=== PATIENT | female | born 1950 | race Caucasian/White ===

== ENCOUNTER → 2017-06-27 | Outpatient (CLI) | payer MEDICARE ==
[~2017-06-27] MED LIST: ACET500; AMIT25; ASPI81EC; CEFD300 PO; CIPR500 PO; CODGUAEL PO; CYCL10 PO; DULO60; FURO20; HUMALOG KW200 UNIT/1; HYDACE5; HYDACE5 PO; INS70/30PN; INSDET100; INSULANI; JANUMET; LOSA50 PO; METO10 PO; METO5A; Norco 5-325 Ta1 EACH PO; PANT40 PO; PHENA200 PO; POTA10T; PROM25 PO; RXHYDACE PO; SIMV20; URISTAT; Zithromax250 MG PO; Zofran Odt4 MG PO; Zofran4 MG PO; [UNRECOGNIZED DRUG - REMARK]
[2017-06-27 14:42] LABS: Alanine Aminotransfer (ALT/SGP 13 U/L (12-78); Albumin, Blood 3.7 g/dL (3.4-5.0); Alk Phos 86 U/L (50-136); Anion Gap 8 mmol/L (6-16); Aspartate Aminotrans (AST/SGOT 10 U/L (12-37); Bilirubin, Total 0.7 mg/dL (0.1-1.0); Blood Urea Nitrogen 19 mg/dL (8-24); CO2, Blood 28 mmol/L (21-32); Calcium, Blood 9.4 mg/dL (8.5-10.1); Chloride, Blood 104 mmol/L (98-108); Globulin, Blood 3.7 g/dL (2.2-4.0); Glomerular Filtration Rate >60 (60-); Glucose, Blood 228 mg/dL (70-99); Potassium, Blood 4.1 mmol/L (3.5-5.5); Sodium, Blood 140 mmol/L (136-145); Total Protein, Blood 7.4 g/dL (6.4-8.2)
== END | disposition home or self-care (01) ==
LOC: LAB SHORT 13:35 → LAB 13:35
PROVIDERS: Internal Medicine
DX: E11.9 Type 2 diabetes mellitus without complications (principal); I10 Essential (primary) hypertension
CPT/HCPCS: 80053; 83036

== ENCOUNTER 2018-07-23 16:19 | Inpatient (IN) | payer MEDICARE ==
[~2018-07-23] VITALS: Ht 157.5 cm; Wt 55.7 kg
[~2018-07-23 16:19] MED LIST changes: -HUMALOG KW200 UNIT/1; +Humalog100 UNIT/3 SC
[2018-07-23 16:45] LABS: Calcium, Ionized (POC) 1.08 mmol/L (1.10-1.46); Chloride (POC) 99 mmol/L (98-108); Creatinine (POC) 0.5 mg/dL (0.6-1.0); Glucose (ISTAT POC) 406 mg/dL (70-99); Hemoglobin (POC) 12.9 g/dL (12.0-16.0); Potassium (POC) 3.7 mmol/L (3.5-5.5); Sodium (POC) 136 mmol/L (135-148); Total CO2 (POC) 20 mmol/L (21-32)
[2018-07-23 16:53] LABS: BASOPHILS ABSOLUTE AUTO 0.03 K/mm3 (0.00-0.23); BASOPHILS PERCENT AUTO 0 % (0-2); EOSINOPHILS ABSOLUTE AUTO 0.01 K/mm3 (0.00-0.68); EOSINOPHILS PERCENT AUTO 0 % (0-6); Hematocrit 36.3 % (33.0-51.0); Hemoglobin 12.6 g/dL (11.5-16.0); IMMATURE GRAN ABSOLUTE AUTO 0.06 K/mm3 (0.00-0.10); IMMATURE GRAN PERCENT AUTO 1 % (0-1); LYMPHOCYTES PERCENT AUTO 13 % (21-46); MONOCYTES ABSOLUTE AUTO 0.58 K/mm3 (0.16-1.47); MONOCYTES PERCENT AUTO 4 % (4-13); Mean Corpuscular HGB 31.7 pg (26.0-34.0); Mean Corpuscular HGB Conc 34.7 g/dL (31.5-36.5); Mean Corpuscular Volume 91 fL (80-100); Mean Platelet Volume 10.3 fL (9.1-12.4); NEUTROPHILS ABSOLUTE AUTO 10.89 K/mm3 (1.96-9.15); NEUTROPHILS PERCENT AUTO 82 % (41-73); Platelet Count 405 K/mm3 (150-400); RDW Coefficient Variation 11.8 % (11.7-14.2); RDW Standard Deviation 39.4 fL (35.1-46.3); Red Blood Cell Count 3.98 M/mm3 (3.80-5.20); White Blood Cell Count 13.27 K/mm3 (4.00-11.30)
[2018-07-23 17:19] LABS: Source, Urine Clean Catch
[2018-07-23 17:19] LABS: Alanine Aminotransfer (ALT/SGP 14 U/L (12-78); Albumin, Blood 3.6 g/dL (3.4-5.0); Albumin/Globulin Ratio 0.8 (0.8-1.8); Alk Phos 155 U/L (50-136); Anion Gap 14 mmol/L (6-16); Aspartate Aminotrans (AST/SGOT 8 U/L (12-37); Bilirubin, Total 0.7 mg/dL (0.1-1.0); Blood Urea Nitrogen 17 mg/dL (8-24); CO2, Blood 21 mmol/L (21-32); Calcium, Blood 9.7 mg/dL (8.5-10.1); Chloride, Blood 99 mmol/L (98-108); Creatinine, Blood 0.53 mg/dL (0.40-1.00); Globulin, Blood 4.7 g/dL (2.2-4.0); Glomerular Filtration Rate >60 (60-); Glucose, Blood 411 mg/dL (70-99); Potassium, Blood 3.7 mmol/L (3.5-5.5); Sodium, Blood 134 mmol/L (136-145); Total Protein, Blood 8.3 g/dL (6.4-8.2)
[2018-07-23 17:25] LABS: Troponin I <0.015 ng/mL (0.000-0.040)
[2018-07-23 17:25] LABS: Bilirubin, Urine Neg (Neg); Blood, Urine 1+ (Neg); Glucose Qualitative, Urine 4+ (Neg); Ketones, Urine 4+ (Neg); Leukocyte Esterase, Urine 1+ (Neg); Nitrite, Urine Neg (Neg); Protein, Urine 1+ (Neg); Specific Gravity, Urine 1.005 (1.003-1.022); Urobilinogen, Urine NORM (Normal)
[2018-07-23 17:32] LABS: Appearance, Urine Clear (Clear); Color, Urine Yellow (P-Yellow)
[2018-07-23 17:33] LABS: White Blood Cells, Urine 25-50 /hpf (0-5)
[2018-07-23 17:34] LABS: Bacteria Many /hpf; Squamous Epithelial Cells Not Seen /hpf (Few)
[2018-07-23 17:34] LABS: Beta-hydroxybutyrate 27.6 mg/dL (0.2-2.8)
[2018-07-23 17:42] LABS: PCO2 Arterial 17.6 mmHg (35-45); PO2 Arterial 120 mmHg (80-100); pH Blood Arterial 7.61 (7.35-7.45)
[2018-07-23] MEDS ORDERED: CITA20 PO (18:35)
[2018-07-23] MEDS ORDERED: ATOR10 PO (18:35)
[2018-07-23] MEDS ORDERED: GLIP5 PO (18:38)
[2018-07-23] MEDS ORDERED: METF500C PO (21:01)
[2018-07-24 05:28] LABS: BASOPHILS ABSOLUTE AUTO 0.02 K/mm3 (0.00-0.23); BASOPHILS PERCENT AUTO 0 % (0-2); EOSINOPHILS PERCENT AUTO 0 % (0-6); Hematocrit 33.5 % (33.0-51.0); Hemoglobin 11.4 g/dL (11.5-16.0); IMMATURE GRAN ABSOLUTE AUTO 0.04 K/mm3 (0.00-0.10); IMMATURE GRAN PERCENT AUTO 0 % (0-1); LYMPHOCYTES ABSOLUTE AUTO 1.32 K/mm3 (0.84-5.20); LYMPHOCYTES PERCENT AUTO 10 % (21-46); MONOCYTES ABSOLUTE AUTO 0.34 K/mm3 (0.16-1.47); MONOCYTES PERCENT AUTO 3 % (4-13); Mean Corpuscular HGB 31.7 pg (26.0-34.0); Mean Corpuscular Volume 93 fL (80-100); Mean Platelet Volume 10.8 fL (9.1-12.4); NEUTROPHILS ABSOLUTE AUTO 11.27 K/mm3 (1.96-9.15); NEUTROPHILS PERCENT AUTO 87 % (41-73); Platelet Count 389 K/mm3 (150-400); RDW Coefficient Variation 11.9 % (11.7-14.2); RDW Standard Deviation 40.5 fL (35.1-46.3); White Blood Cell Count 12.99 K/mm3 (4.00-11.30)
[2018-07-24 05:57] LABS: Magnesium, Blood 1.5 mg/dL (1.6-2.4)
[2018-07-24 05:58] LABS: Alanine Aminotransfer (ALT/SGP 15 U/L (12-78); Albumin, Blood 3.3 g/dL (3.4-5.0); Albumin/Globulin Ratio 0.7 (0.8-1.8); Alk Phos 143 U/L (50-136); Anion Gap 15 mmol/L (6-16); Aspartate Aminotrans (AST/SGOT 10 U/L (12-37); Bilirubin, Total 0.5 mg/dL (0.1-1.0); Blood Urea Nitrogen 18 mg/dL (8-24); CO2, Blood 18 mmol/L (21-32); Calcium, Blood 8.8 mg/dL (8.5-10.1); Chloride, Blood 105 mmol/L (98-108); Creatinine, Blood 0.64 mg/dL (0.40-1.00); Globulin, Blood 4.5 g/dL (2.2-4.0); Glomerular Filtration Rate >60 (60-); Glucose, Blood 327 mg/dL (70-99); Potassium, Blood 3.6 mmol/L (3.5-5.5); Sodium, Blood 138 mmol/L (136-145); Total Protein, Blood 7.8 g/dL (6.4-8.2)
--- NOTE | 2018-07-24 07:24 | NUR ---
SHIFT SUMMARY PT ARRIVED TO ROOM APPROX 2029. C/O N/V ACTIVELY VOMITING. EMESIS BROWN. REGLAN PO DIDN'T HELP AND SHE KEPT BEING NAUSEOUS AND VOMITING. IV COMPAZINE HELPED HER FOR A LITTLE WHILE AND SHE WAS ABLE TO GET SOME REST. BUT CONSISTANTLY N/V T/O NIGHT. MEDICATED C COMPAZINE Q2HR MAX DOSE 40MG. SBA TO BA BUT IS INCONT AT BASELINE WELL. REPORT GIVEN TO DAY RN
--- NOTE | 2018-07-24 19:06 | NUR ---
PT CONTINUES TO WITH NAUSEA/VOMITING, ABLE TO KEEP ICE CHIPS AND SIPS OF WATER DOWN. C/O BURING PAIN TO THROAT TO STOMACH, CARAFATE AC/HS STARTED FOR THIS. NO ACUTE CHANGES NOTED. WILL CONTINUE TO MONITOR AND REPORT TO ONCOMING RN
[2018-07-25 04:55] LABS: BASOPHILS ABSOLUTE AUTO 0.04 K/mm3 (0.00-0.23); BASOPHILS PERCENT AUTO 0 % (0-2); EOSINOPHILS PERCENT AUTO 0 % (0-6); Hematocrit 35.7 % (33.0-51.0); Hemoglobin 12.1 g/dL (11.5-16.0); IMMATURE GRAN ABSOLUTE AUTO 0.11 K/mm3 (0.00-0.10); IMMATURE GRAN PERCENT AUTO 1 % (0-1); LYMPHOCYTES ABSOLUTE AUTO 2.06 K/mm3 (0.84-5.20); LYMPHOCYTES PERCENT AUTO 11 % (21-46); MONOCYTES ABSOLUTE AUTO 1.39 K/mm3 (0.16-1.47); MONOCYTES PERCENT AUTO 7 % (4-13); Mean Corpuscular HGB 32.4 pg (26.0-34.0); Mean Corpuscular HGB Conc 33.9 g/dL (31.5-36.5); Mean Platelet Volume 10.8 fL (9.1-12.4); NEUTROPHILS ABSOLUTE AUTO 15.65 K/mm3 (1.96-9.15); NEUTROPHILS PERCENT AUTO 81 % (41-73); Platelet Count 406 K/mm3 (150-400); RDW Coefficient Variation 12.2 % (11.7-14.2); RDW Standard Deviation 42.1 fL (35.1-46.3); Red Blood Cell Count 3.74 M/mm3 (3.80-5.20); White Blood Cell Count 19.25 K/mm3 (4.00-11.30)
[2018-07-25 05:01] LABS: Mean Corpuscular Volume 96 fL (80-100)
[2018-07-25 05:14] LABS: Alanine Aminotransfer (ALT/SGP 12 U/L (12-78); Albumin, Blood 3.2 g/dL (3.4-5.0); Albumin/Globulin Ratio 0.7 (0.8-1.8); Alk Phos 129 U/L (50-136); Anion Gap 14 mmol/L (6-16); Aspartate Aminotrans (AST/SGOT 13 U/L (12-37); Bilirubin, Total 0.4 mg/dL (0.1-1.0); Blood Urea Nitrogen 14 mg/dL (8-24); Bun/Creatinine Ratio 26.3 (12.0-20.0); CO2, Blood 18 mmol/L (21-32); Calcium, Blood 8.8 mg/dL (8.5-10.1); Chloride, Blood 107 mmol/L (98-108); Creatinine, Blood 0.53 mg/dL (0.40-1.00); Globulin, Blood 4.3 g/dL (2.2-4.0); Glomerular Filtration Rate >60 (60-); Glucose, Blood 204 mg/dL (70-99); Potassium, Blood 3.1 mmol/L (3.5-5.5); Sodium, Blood 139 mmol/L (136-145); Total Protein, Blood 7.5 g/dL (6.4-8.2)
--- NOTE | 2018-07-25 05:40 | NUR ---
*SHIFT SUMMARY* ALERT AND ORIENTED. PATIENT WAS VERY NAUSEATED THROUGHOUT BEGINING OF SHIFT. MEDICATED FOR NAUSEA ORDERED. ADVISED PATIENT TO TAKE A BREAK FROM DRINKING FLUIDS SINCE SHE WAS CONTINUALLY VOMITING. PT STATES SHE DOESN'T HAVE PAIN JUST NAUSEA. CALLED HOSPITALIST AND RECIEVED A NEW ORDER FOR ZOFRAN IV AND OT ORDER FOR ATIVAN. PT WAS ABLE TO GET SOME REST AFTER THE ATIVAN WAS ADMINISTERED, AND STATES THE NAUSEA HAS DECREASED. VITAL SIGNS ARE STABLE. CALL LIGHT IN REACH, BED LOWERED AND LOCKED.
--- NOTE | 2018-07-25 17:37 | NUR ---
SHIFT SUMMARY PT UP TO BATHROOM WITH 1 PERSON ASSIST. INCONTINENT GENERALLY BY THE TIME SHE GETS THERE AND REPORTS THIS IS BASELINE. HAS DENIED NAUSEA THROUGH DAY BUT REPORTS DISCOMFORT TO LUQ AND TENERNESS. HAS ONLY SIPPED AT CLEAR LIQUIDS AND REPORTS IT DOESN'T SET VERY WELL WITH JUST BEING LIQUID. CALLED MD AND RECEIVED A FULL LIQUID DIET. HAS HAD APPLESAUCE AND IS EATING IT SLOWLY AND STATES SHE DOESN'T FEEL ANY WORSE EATING IT.
--- NOTE | 2018-07-25 20:34 | NUR ---
SITE IS ON RIGHT FOREARM NOT LEFT.
--- NOTE | 2018-07-25 20:36 | NUR ---
THERE WAS NO IV IN THE AC ON 07/24/18. UNSURE WHO REMOVED IV.
[2018-07-26 04:55] LABS: BASOPHILS ABSOLUTE AUTO 0.03 K/mm3 (0.00-0.23); BASOPHILS PERCENT AUTO 0 % (0-2); EOSINOPHILS ABSOLUTE AUTO 0.01 K/mm3 (0.00-0.68); EOSINOPHILS PERCENT AUTO 0 % (0-6); Hematocrit 36.1 % (33.0-51.0); Hemoglobin 12.6 g/dL (11.5-16.0); IMMATURE GRAN ABSOLUTE AUTO 0.14 K/mm3 (0.00-0.10); IMMATURE GRAN PERCENT AUTO 1 % (0-1); LYMPHOCYTES ABSOLUTE AUTO 2.66 K/mm3 (0.84-5.20); LYMPHOCYTES PERCENT AUTO 16 % (21-46); MONOCYTES ABSOLUTE AUTO 1.33 K/mm3 (0.16-1.47); MONOCYTES PERCENT AUTO 8 % (4-13); Mean Corpuscular HGB 31.9 pg (26.0-34.0); Mean Corpuscular HGB Conc 34.9 g/dL (31.5-36.5); Mean Platelet Volume 10.7 fL (9.1-12.4); NEUTROPHILS ABSOLUTE AUTO 13.03 K/mm3 (1.96-9.15); NEUTROPHILS PERCENT AUTO 76 % (41-73); Platelet Count 438 K/mm3 (150-400); RDW Coefficient Variation 12.1 % (11.7-14.2); RDW Standard Deviation 40.6 fL (35.1-46.3); Red Blood Cell Count 3.95 M/mm3 (3.80-5.20)
[2018-07-26 05:06] LABS: Mean Corpuscular Volume 91 fL (80-100)
[2018-07-26 05:40] LABS: Alanine Aminotransfer (ALT/SGP 11 U/L (12-78); Albumin, Blood 3.2 g/dL (3.4-5.0); Albumin/Globulin Ratio 0.8 (0.8-1.8); Alk Phos 132 U/L (50-136); Anion Gap 11 mmol/L (6-16); Aspartate Aminotrans (AST/SGOT 11 U/L (12-37); Bilirubin, Total 0.6 mg/dL (0.1-1.0); Blood Urea Nitrogen 7 mg/dL (8-24); Bun/Creatinine Ratio 14.5 (12.0-20.0); CO2, Blood 24 mmol/L (21-32); Calcium, Blood 8.2 mg/dL (8.5-10.1); Chloride, Blood 102 mmol/L (98-108); Creatinine, Blood 0.48 mg/dL (0.40-1.00); Globulin, Blood 4.1 g/dL (2.2-4.0); Glomerular Filtration Rate >60 (60-); Glucose, Blood 260 mg/dL (70-99); Sodium, Blood 137 mmol/L (136-145); Total Protein, Blood 7.3 g/dL (6.4-8.2)
[2018-07-26 05:42] LABS: Potassium, Blood 2.4 mmol/L (3.5-5.5)
--- NOTE | 2018-07-26 07:28 | NUR ---
*SHIFT SUMMARY* PATIENT IS ALERT AND ORIENTED. PATIENT REPORTS HAVING A DECREASE IN NAUSEA TODAY AND WAS ABLE TO TOLERATE FULL LIQUIDS. PATIENT SLEPT WELL THROUGHOUT THE NIGHT AND USED CALL LIGHT APPROPRIATELY TO USE BATHROOM. EARLY THIS AM PT REPORTED FEELING INDIGESTION. THIS WAS REPORTED TO THE DAYSHIFT RN. CRITICAL VALUE REPORTED THAT POTASSIUM LEVEL WAS LOW AT 2.4. APARTMENT LEASING AGENT AND HOSPITALIST NOTIFIED. NEW ORDERS RECIEVED AND ADMINISTERED SEE EMAR. CALL LIGHT IN REACH, BED LOWERED AND LOCKED.
[2018-07-26] MEDS ORDERED: METO10 PO (10:31)
[2018-07-26] MEDS ORDERED: TUMS500 MG PO (10:32)
[2018-07-26] MEDS ORDERED: Carafate1 GM/10 ML PO (10:33)
--- NOTE | 2018-07-26 12:23 | NUR ---
DISCHARGE INSTRUCTIONS COMPLETED AND DISCUSSED WITH PT EXPRESSING UNDERSTANDING. SCRIPTS FAXED TO [facility]. TO [facility] VIA W/C WITH FAMILY.
== END 2018-07-26 12:08 | disposition home or self-care (01) | DRG 74 ==
LOC: ER 16:19 → MEDS 18:19 → ENPENDDIS 07-26 09:59 → MEDS 07-26 12:08
PROVIDERS: Emergency Medicine; ADMIT Internal Medicine
DX: E11.43 Type 2 diabetes mellitus with diabetic autonomic (poly)neuropathy (principal); N39.0 Urinary tract infection, site not specified; K31.84 Gastroparesis; K21.9 Gastro-esophageal reflux disease without esophagitis; E87.6 Hypokalemia; K20.9 Esophagitis, unspecified; B96.20 Unspecified Escherichia coli [E. coli] as the cause of diseases classified elsewhere; I10 Essential (primary) hypertension; G47.33 Obstructive sleep apnea (adult) (pediatric); E78.5 Hyperlipidemia, unspecified; Z86.73 Personal history of transient ischemic attack (TIA), and cerebral infarction without residual deficits
CPT/HCPCS: 36415; 36600; 71045; 80047; 80053; 81001; 82010; 82803; 82947; 83036; 83605; 83735; 84484; 85014; 85025; 87077; 87086; 87186; 93005; 93010; 96361; 96365; 96375; 96376; 99285-25; J0696; J0780; J1650; J1815; J2060; J2405; J3475; J3480; J7030; P9612

== ENCOUNTER → 2018-08-12 | Outpatient (CLI) | payer MEDICARE ==
[~2018-08-12] MED LIST changes: +ATOR10 PO; +CITA20 PO; +Carafate1 GM/10 ML PO; +GLIP5 PO; +METF500C PO; +TUMS500 MG PO
== END | disposition home or self-care (01) ==
LOC: LAB 18:11 → LAB SHORT 18:11
DX: N39.0 Urinary tract infection, site not specified (principal)
CPT/HCPCS: 87077; 87086; 87186

== ENCOUNTER → 2018-09-10 | Outpatient (CLI) | payer MEDICARE | LOC: LAB 13:54 → LAB SHORT 13:54 | DX: R35.0 Frequency of micturition (principal) | CPT/HCPCS: 87077; 87086; 87186 ==

== ENCOUNTER 2019-01-03 18:23 | Inpatient (IN) | payer MEDICARE ==
[~2019-01-03] VITALS: Ht 160 cm; Wt 56.7 kg
[~2019-01-03 18:23] MED LIST changes: -ATOR10 PO; -Humalog100 UNIT/3 SC; -METF500C PO
[2019-01-03 19:14] LABS: Base Excess Venous -8.5 mmol/L; Bicarbonate Venous 20.6 mmol/L (24.0-30.0); PCO2 Venous 13.6 mmHg (38-42); PO2 Venous 143 mmHg (38-42)
[2019-01-03 19:16] LABS: BASOPHILS ABSOLUTE AUTO 0.06 K/mm3 (0.00-0.23); BASOPHILS PERCENT AUTO 0 % (0-2); EOSINOPHILS ABSOLUTE AUTO 0.05 K/mm3 (0.00-0.68); EOSINOPHILS PERCENT AUTO 0 % (0-6); Hematocrit 42.6 % (33.0-51.0); IMMATURE GRAN ABSOLUTE AUTO 0.12 K/mm3 (0.00-0.10); IMMATURE GRAN PERCENT AUTO 1 % (0-1); LYMPHOCYTES ABSOLUTE AUTO 6.07 K/mm3 (0.84-5.20); LYMPHOCYTES PERCENT AUTO 40 % (21-46); MONOCYTES ABSOLUTE AUTO 0.76 K/mm3 (0.16-1.47); MONOCYTES PERCENT AUTO 5 % (4-13); Mean Corpuscular HGB 32.2 pg (26.0-34.0); Mean Corpuscular HGB Conc 35.2 g/dL (31.5-36.5); Mean Corpuscular Volume 91 fL (80-100); Mean Platelet Volume 11.3 fL (9.1-12.4); NEUTROPHILS ABSOLUTE AUTO 8.18 K/mm3 (1.96-9.15); NEUTROPHILS PERCENT AUTO 54 % (41-73); Platelet Count 366 K/mm3 (150-400); RDW Coefficient Variation 11.9 % (11.7-14.2); RDW Standard Deviation 40.2 fL (35.1-46.3); Red Blood Cell Count 4.66 M/mm3 (3.80-5.20); White Blood Cell Count 15.24 K/mm3 (4.00-11.30)
[2019-01-03 19:35] LABS: Calcium, Ionized (POC) 1.07 mmol/L (1.10-1.46); Chloride (POC) 102 mmol/L (98-108); Creatinine (POC) 0.7 mg/dL (0.6-1.0); Glucose (ISTAT POC) 488 mg/dL (70-99); Hemoglobin (POC) 15.6 g/dL (12.0-16.0); Potassium (POC) 3.8 mmol/L (3.5-5.5); Sodium (POC) 131 mmol/L (135-148); Total CO2 (POC) 14 mmol/L (21-32)
[2019-01-03 19:37] LABS: Alanine Aminotransfer (ALT/SGP 12 U/L (12-78); Albumin, Blood 4.1 g/dL (3.4-5.0); Alk Phos 111 U/L (50-136); Anion Gap 20 mmol/L (6-16); Aspartate Aminotrans (AST/SGOT 13 U/L (12-37); Bilirubin, Total 0.9 mg/dL (0.1-1.0); Blood Urea Nitrogen 24 mg/dL (8-24); Bun/Creatinine Ratio 34.4 (12.0-20.0); CO2, Blood 15 mmol/L (21-32); Calcium, Blood 10.2 mg/dL (8.5-10.1); Chloride, Blood 98 mmol/L (98-108); Globulin, Blood 4.1 g/dL (2.2-4.0); Glomerular Filtration Rate >60 (60-); Glucose, Blood 417 mg/dL (70-99); Potassium, Blood 3.9 mmol/L (3.5-5.5); Sodium, Blood 133 mmol/L (136-145); Total Protein, Blood 8.2 g/dL (6.4-8.2); Troponin I <0.015 ng/mL (0.000-0.040)
[2019-01-03 20:23] LABS: Base Excess Venous -10.8 mmol/L; PCO2 Venous 40.3 mmHg (38-42); PO2 Venous 43.7 mmHg (38-42)
[2019-01-03 20:24] LABS: pH Blood Venous 7.22 (7.34-7.37)
[2019-01-03 21:08] LABS: Source, Urine Voided
[2019-01-03 21:19] LABS: Appearance, Urine Hazy (Clear); Bilirubin, Urine Neg (Neg); Blood, Urine 2+ (Neg); Color, Urine Yellow (P-Yellow); Glucose Qualitative, Urine 4+ (Neg); Ketones, Urine 4+ (Neg); Leukocyte Esterase, Urine Neg (Neg); Nitrite, Urine Neg (Neg); Protein, Urine 2+ (Neg); Urobilinogen, Urine NORM (Normal)
[2019-01-03 21:26] LABS: Squamous Epithelial Cells Few /hpf (Few); White Blood Cells, Urine 0-2 /hpf (0-5)
[2019-01-03 21:27] LABS: Bacteria Mod /hpf
--- NOTE | 2019-01-03 22:50 | NUR ---
ADMIT NOTE: ADMIT 68 YEAR OLD FEMALE TO ICU 14 PER JANKI VIA ER TO HOSPITALIST DR BOLDEN SERVICE. TRANSFER TO BED MONITOR PLACED SHOWING SINUS RHYTHM. HEART RATE 80'S-90'S. DENIES DISCOMFORT. LUNGS SOUNDS CLEAR WITH DECREASED SOUND IN THE BASES. RESPIRATIONS REGULAR AND EASY ON ROOM AIR SPO2 94-97%. ABDOMEN SOFT WITH BOWEL SOUNDS FOUR QUADS. PULL UPS IN PLACE SECONDARY TO INCONTINENCE. SKIN COOL DRY NO EDEMA NOTED. PEDAL PULSES PRESENT. BLOOD CONSENT AND RELEASE OF INFORMATION COMPLETED. CONTINUE TO MONITOR AND REPORT CHANGE IN PATIENT CONDITION. DENIES NAUSEA.
[2019-01-04 01:02] LABS: Anion Gap 11 mmol/L (6-16); Blood Urea Nitrogen 27 mg/dL (8-24); Bun/Creatinine Ratio 37.3 (12.0-20.0); CO2, Blood 23 mmol/L (21-32); Calcium, Blood 9.1 mg/dL (8.5-10.1); Chloride, Blood 105 mmol/L (98-108); Creatinine, Blood 0.72 mg/dL (0.40-1.00); Glomerular Filtration Rate >60 (60-); Glucose, Blood 260 mg/dL (70-99); Magnesium, Blood 1.3 mg/dL (1.6-2.4); Potassium, Blood 4.4 mmol/L (3.5-5.5); Sodium, Blood 139 mmol/L (136-145)
[2019-01-04 03:39] LABS: Anion Gap 9 mmol/L (6-16); Blood Urea Nitrogen 26 mg/dL (8-24); Bun/Creatinine Ratio 35.1 (12.0-20.0); CO2, Blood 25 mmol/L (21-32); Calcium, Blood 9.1 mg/dL (8.5-10.1); Chloride, Blood 105 mmol/L (98-108); Creatinine, Blood 0.74 mg/dL (0.40-1.00); Glomerular Filtration Rate >60 (60-); Glucose, Blood 248 mg/dL (70-99); Sodium, Blood 139 mmol/L (136-145)
--- NOTE | 2019-01-04 06:27 | NUR ---
SHIFT SUMMARY : RESTS QUIETLY WHEN UNDISTURBED MONITOR INTACT SHOWING SINUS RHYTHM HEART RATE 80'S-90'S. DENIES NAUSEA DISCOMFORT. LUNG SOUNDS REMAIN CLEAR. RESPIRATIONS REGULAR AND EASY ON ROOM AIR. SPO2 98-100% ABDOMEN SOFT WITH BOWEL SOUNDS FOUR QUADS. ATTENDS IN PLACE SECONDARY TO INCONTINENCE. CONTINUE TO MONITOR AND REPORT CHANGE IN PATIENT CONDITION.
[2019-01-04 08:43] LABS: Hematocrit 35.1 % (33.0-51.0); Mean Corpuscular HGB 32.9 pg (26.0-34.0); Mean Corpuscular HGB Conc 34.2 g/dL (31.5-36.5); Platelet Count 291 K/mm3 (150-400); RDW Coefficient Variation 12.1 % (11.7-14.2); RDW Standard Deviation 42.9 fL (35.1-46.3); Red Blood Cell Count 3.65 M/mm3 (3.80-5.20); White Blood Cell Count 16.61 K/mm3 (4.00-11.30)
[2019-01-04 08:49] LABS: Mean Corpuscular Volume 96 fL (80-100)
--- NOTE | 2019-01-04 09:56 | NUR ---
PT A/O. UP TO BSC WITH URINE AND STOOL PASSED. D5NS AT 150 WITH INSULIN AT 1 UNIT AND CBG NOTED. PT IS A/O AND DENIES N/V OR DISTRESS.
--- NOTE | 2019-01-04 11:38 | NUR ---
INSULIN GTT AND D51/2NS STOPPED PER DR STANLEY. SQ AM LANTUS TO FOLLOW. PT CONT TO DENIE PAIN OR N/V. VS HAVE BEEN STABLE
--- NOTE | 2019-01-04 15:16 | NUR ---
CALLED DR. STANLEY. NOTIFIED HIM OF HOW MUCH PATIENT ATE FOR LUNCH AND OVERALL CONDITION OF THE PATIENT. HE ORDERED TO GIVE 5 UNITS OF HUMALOG THEN HE WILL DISCHARGE PATIENT.
[2019-01-04] MEDS ORDERED: ACET325 PO (16:29)
[2019-01-04] MEDS ORDERED: ONDA4ODT PO (16:31)
[2019-01-04] MEDS ORDERED: CEFP200 PO (16:32)
[2019-01-04] MEDS ORDERED: Florastor250 MG PO (16:32)
--- NOTE | 2019-01-04 17:12 | NUR ---
DISCHARGE INSTRUCTIONS GIVEN TO PATIENT. PT WAS DISCHARGED AT 1700. GAVE DR. STANLEY'S PRESCRIPTION TO DO CBC AND CMP BEFORE SEEING DR. MIXON ON JANUARY 06, 2019.
--- NOTE | 2019-01-04 17:26 | NUR ---
Pal spiritual Care initial note: Kya tells me she is hospitalized b/c "I have to figure out medications." She reports a life-long barber in a God that loves her. She feels strongly supported by family and friends from scientologist. She admitted to me she was fearful of her health declining further. We prayed together for healing to good effect. She responded well to spiritual prenatal genetic counselor and assurance of excellent care. I will remain available.
[2019-03-01] MEDS ORDERED: INSULANPEN SC (01:13)
[2019-03-01] MEDS ORDERED: GABA100 PO (01:16)
[2019-03-02] MEDS ORDERED: ERYT250 PO (11:53)
[2019-03-02] MEDS ORDERED: METO10 PO (11:54)
[2019-03-02] MEDS ORDERED: OMEPRAZOLE20 MG PO (11:55)
[2019-03-02] MEDS ORDERED: Prinivil10 MG PO (11:55)
[2019-03-02] MEDS ORDERED: POTA10T PO (11:56)
== END 2019-01-04 17:00 | disposition home or self-care (01) | DRG 638 ==
LOC: ER 18:23 → ICUW 21:11
PROVIDERS: Emergency Medicine; Family Medicine; ADMIT Hospitalist
DX: E11.10 Type 2 diabetes mellitus with ketoacidosis without coma (principal); E87.1 Hypo-osmolality and hyponatremia; E11.43 Type 2 diabetes mellitus with diabetic autonomic (poly)neuropathy; K31.84 Gastroparesis; I10 Essential (primary) hypertension; E86.0 Dehydration; E78.5 Hyperlipidemia, unspecified; G47.33 Obstructive sleep apnea (adult) (pediatric); Z86.73 Personal history of transient ischemic attack (TIA), and cerebral infarction without residual deficits; Z88.8 Allergy status to other drugs, medicaments and biological substances; Z79.82 Long term (current) use of aspirin; Z79.4 Long term (current) use of insulin; Z79.899 Other long term (current) drug therapy
CPT/HCPCS: 36415; 71045; 80047; 80048; 80053; 81001; 82803; 82947; 83690; 83735; 83880; 84484; 85014; 85025; 85027; 87086; 93005; 93010; 96361; 96374; 96375; 99285-25; C9113; J1200; J1650; J1815; J2765; J3480; J7030; J7042; J7120

== ENCOUNTER 2019-01-06 15:23 | Inpatient (IN) | payer MEDICARE ==
[~2019-01-06] VITALS: Ht 160 cm; Wt 58.1 kg
[~2019-01-06 15:23] MED LIST changes: +ACET325 PO; +CEFP200 PO; +Florastor250 MG PO; +ONDA4ODT PO
[2019-01-06 15:51] LABS: BASOPHILS ABSOLUTE AUTO 0.04 K/mm3 (0.00-0.23); BASOPHILS PERCENT AUTO 0 % (0-2); EOSINOPHILS ABSOLUTE AUTO 0.03 K/mm3 (0.00-0.68); EOSINOPHILS PERCENT AUTO 0 % (0-6); Hematocrit 38.8 % (33.0-51.0); IMMATURE GRAN ABSOLUTE AUTO 0.03 K/mm3 (0.00-0.10); IMMATURE GRAN PERCENT AUTO 0 % (0-1); LYMPHOCYTES ABSOLUTE AUTO 3.39 K/mm3 (0.84-5.20); LYMPHOCYTES PERCENT AUTO 32 % (21-46); MONOCYTES ABSOLUTE AUTO 0.42 K/mm3 (0.16-1.47); MONOCYTES PERCENT AUTO 4 % (4-13); Mean Corpuscular HGB 32.9 pg (26.0-34.0); Mean Corpuscular HGB Conc 36.1 g/dL (31.5-36.5); Mean Platelet Volume 10.6 fL (9.1-12.4); NEUTROPHILS ABSOLUTE AUTO 6.79 K/mm3 (1.96-9.15); NEUTROPHILS PERCENT AUTO 63 % (41-73); Platelet Count 364 K/mm3 (150-400); RDW Coefficient Variation 12.1 % (11.7-14.2); RDW Standard Deviation 40.5 fL (35.1-46.3); Red Blood Cell Count 4.25 M/mm3 (3.80-5.20)
[2019-01-06 15:56] LABS: Mean Corpuscular Volume 91 fL (80-100)
[2019-01-06 16:14] LABS: Alanine Aminotransfer (ALT/SGP 18 U/L (12-78); Albumin, Blood 4.3 g/dL (3.4-5.0); Albumin/Globulin Ratio 1.1 (0.8-1.8); Alk Phos 96 U/L (50-136); Anion Gap 18 mmol/L (6-16); Aspartate Aminotrans (AST/SGOT 10 U/L (12-37); Bilirubin, Total 0.9 mg/dL (0.1-1.0); Blood Urea Nitrogen 19 mg/dL (8-24); CO2, Blood 17 mmol/L (21-32); Calcium, Blood 10.3 mg/dL (8.5-10.1); Chloride, Blood 102 mmol/L (98-108); Globulin, Blood 3.8 g/dL (2.2-4.0); Glomerular Filtration Rate >60 (60-); Glucose, Blood 331 mg/dL (70-99); Potassium, Blood 3.8 mmol/L (3.5-5.5); Sodium, Blood 137 mmol/L (136-145); Total Protein, Blood 8.1 g/dL (6.4-8.2)
[2019-01-06 16:55] LABS: Troponin I <0.015 ng/mL (0.000-0.040)
[2019-01-06 17:03] LABS: Base Excess Venous -6.8 mmol/L; Bicarbonate Venous 20.2 mmol/L (24.0-30.0); PCO2 Venous 21.4 mmHg (38-42); PO2 Venous 33.3 mmHg (38-42)
[2019-01-06] MEDS ORDERED: Oxybutynin Chlor5 M1 PO (17:54)
[2019-01-06] MEDS ORDERED: ATOR10 PO (17:56)
[2019-01-06] MEDS ORDERED: SPIR25 PO (17:56)
[2019-01-06] MEDS ORDERED: GABA300 PO ×2 (17:58)
[2019-01-06] MEDS ORDERED: Metformin HCl850 MG PO (17:58)
[2019-01-06] MEDS ORDERED: DULO60 PO (17:58)
[2019-01-06] MEDS ORDERED: AMIT25 PO (17:58)
[2019-01-06] MEDS ORDERED: TRULICITY0.75 MG/0. SC (17:58)
[2019-01-06] MEDS ORDERED: PANT20 PO (17:59)
[2019-01-06] MEDS ORDERED: TRESIBA FL100 UNIT/1 SC (18:00)
[2019-01-06] MEDS ORDERED: Humalog100 UNIT/3 SC (18:00)
[2019-01-06] MEDS ORDERED: B-121000 MCG PO (18:00)
[2019-01-06] MEDS ORDERED: Aspirin EC81 MG PO (18:00)
--- NOTE | 2019-01-06 20:30 | NUR ---
ASSUMED CARE RECIEVED REPORT FROM PLANT SECURITY GUARD. PT ARRIVES TO ICU VIA STRETCHER AT 2009. PT LETHARGIC, BUT ORIENTED TO SITUATION, PERSON AND PLACE. LR INFUSING BY GRAVITY, FLAGYL IS INFUSING WELL. INSULIN AND MAG SULFATE NOT STARTED BUT CAME UP WITH PT. PT IS HYPERTENSIVE, BUT HR IS STABLE. PT DENIES CHEST/EPIGASTRIC PAIN. DENIES N/V.
[2019-01-06 21:15] LABS: Anion Gap 15 mmol/L (6-16); Blood Urea Nitrogen 19 mg/dL (8-24); Bun/Creatinine Ratio 28.4 (12.0-20.0); CO2, Blood 18 mmol/L (21-32); Calcium, Blood 9.1 mg/dL (8.5-10.1); Chloride, Blood 102 mmol/L (98-108); Creatinine, Blood 0.67 mg/dL (0.40-1.00); Glomerular Filtration Rate >60 (60-); Glucose, Blood 343 mg/dL (70-99); Potassium, Blood 3.9 mmol/L (3.5-5.5); Sodium, Blood 135 mmol/L (136-145)
[2019-01-06 21:55] LABS: Source, Urine Catheter
[2019-01-06 21:59] LABS: Bilirubin, Urine Neg (Neg); Blood, Urine Neg (Neg); Glucose Qualitative, Urine 4+ (Neg); Ketones, Urine 4+ (Neg); Leukocyte Esterase, Urine Neg (Neg); Nitrite, Urine Neg (Neg); Protein, Urine Neg (Neg); Specific Gravity, Urine 1.005 (1.003-1.022); Urobilinogen, Urine NORM (Normal)
[2019-01-06 22:03] LABS: Appearance, Urine Clear (Clear); Color, Urine Yellow (P-Yellow)
--- NOTE | 2019-01-07 01:14 | NUR ---
UPDATE NO ACUTE CHANGES. PT HAS BEEN ASLEEP SINCE SHORTLY AFTER HER ADMISSION TO THE ICU; STILL VERY LETHARGIC, BUT RESPONSIVE. PT IS STILL COOL TO TOUCH IN ALL FOUR EXTREMETIES; BP AND HR STABLE.
[2019-01-07 01:55] LABS: Anion Gap 9 mmol/L (6-16); Blood Urea Nitrogen 17 mg/dL (8-24); Bun/Creatinine Ratio 25.6 (12.0-20.0); CO2, Blood 21 mmol/L (21-32); Calcium, Blood 8.9 mg/dL (8.5-10.1); Chloride, Blood 108 mmol/L (98-108); Creatinine, Blood 0.66 mg/dL (0.40-1.00); Glomerular Filtration Rate >60 (60-); Glucose, Blood 208 mg/dL (70-99); Potassium, Blood 3.6 mmol/L (3.5-5.5); Sodium, Blood 138 mmol/L (136-145)
[2019-01-07 05:10] LABS: BASOPHILS ABSOLUTE AUTO 0.01 K/mm3 (0.00-0.23); BASOPHILS PERCENT AUTO 0 % (0-2); EOSINOPHILS ABSOLUTE AUTO 0.01 K/mm3 (0.00-0.68); EOSINOPHILS PERCENT AUTO 0 % (0-6); Hematocrit 31.5 % (33.0-51.0); Hemoglobin 11.2 g/dL (11.5-16.0); IMMATURE GRAN ABSOLUTE AUTO 0.02 K/mm3 (0.00-0.10); IMMATURE GRAN PERCENT AUTO 0 % (0-1); LYMPHOCYTES ABSOLUTE AUTO 3.02 K/mm3 (0.84-5.20); LYMPHOCYTES PERCENT AUTO 27 % (21-46); MONOCYTES ABSOLUTE AUTO 1.23 K/mm3 (0.16-1.47); MONOCYTES PERCENT AUTO 11 % (4-13); Mean Corpuscular HGB 33.2 pg (26.0-34.0); Mean Corpuscular HGB Conc 35.6 g/dL (31.5-36.5); Mean Platelet Volume 10.5 fL (9.1-12.4); NEUTROPHILS PERCENT AUTO 62 % (41-73); Platelet Count 292 K/mm3 (150-400); RDW Coefficient Variation 12.5 % (11.7-14.2); RDW Standard Deviation 42.9 fL (35.1-46.3); Red Blood Cell Count 3.37 M/mm3 (3.80-5.20); White Blood Cell Count 11.39 K/mm3 (4.00-11.30)
[2019-01-07 05:14] LABS: Mean Corpuscular Volume 94 fL (80-100)
[2019-01-07 05:25] LABS: Anion Gap 6 mmol/L (6-16); Blood Urea Nitrogen 16 mg/dL (8-24); Bun/Creatinine Ratio 21.2 (12.0-20.0); CO2, Blood 25 mmol/L (21-32); Calcium, Blood 8.2 mg/dL (8.5-10.1); Chloride, Blood 109 mmol/L (98-108); Creatinine, Blood 0.76 mg/dL (0.40-1.00); Glomerular Filtration Rate >60 (60-); Glucose, Blood 150 mg/dL (70-99); Potassium, Blood 3.5 mmol/L (3.5-5.5); Sodium, Blood 140 mmol/L (136-145)
--- NOTE | 2019-01-07 05:36 | NUR ---
SHIFT SUMMARY NO MAJOR OR ACUTE CHANGES OVERNIGHT. PT SLEPT ALL NIGHT - PT AWOKE WHILE POWERGLIDE WAS INSERTED, PT FOLLOWED COMMANDS, BUT REMAINS VERY LETHARGIC. CURRENT GTTPS: PROTONIX 10ML/HR, D5-1/2NS 150ML/HR, AND INSULIN 1 UNIT/KG/HR. BLOOD GLUCOSE HAS NORMALIZED, ANION GAP HAS CLOSED, CO2 IS NOW ABOVE 20; SHE IS READY TO RECEIVE ORDERS FOR A LONG ACTING INSULIN, HOWEVER, I AM NOT SURE IF SHE WILL BE READY TO EAT FOOD, DUE TO HER LETHARGY. WILL PASS ON TO DAY RN. SHE HAS HAD NO NAUSEA OR VOMITING OVERNIGHT, AND HAS STATED HER PAIN TO BE A 0/10. THE MOST RECENT LACTIC ACID HAS TRENDED DOWNWARD TO 1.4. NO FAMILY AT BEDSIDE, STEP DAUGHTER VISITED LAST NIGHT FOR A SHORT PERIOD OF TIME, I GAVE HER AN UPDATE. BED IS LOW AND LOCKED. CALL LIGHT WITHIN REACH.
--- NOTE | 2019-01-07 07:17 | NUR ---
ASSUMED CARE: PT RESTING QUIETLY. D5 AND INSULIN GTTS RUNNING. INSULIN GTT AT 1 UNIT/HR. NO GI MOVIE OPERATOR, WILL DISCUSS WELL CURRENT LABS, WITH PHYSICIAN. NO ACUTE NEEDS OR DISTRESS AT THIS TIME.
--- NOTE | 2019-01-07 09:00 | NUR ---
DR MAE HERE TO SEE PT AND AWARE NO GI AVAILABLE FOR REST OF MONTH. AWARE OF CURRENT LABS. SEE NEW ORDERS
--- NOTE | 2019-01-07 09:34 | NUR ---
REPORT GIVEN TO LISSETT STRONG.
--- NOTE | 2019-01-07 09:42 | NUR ---
REPORT RECEIVED FROM ELENA, AND CARE ASSUMED AT 0930. LONG ACTING INSULIN GIVEN. PT REQUESTING FOOD, TRAY NOW ORDERED. NO OTHER REQUESTS AT THIS TIME.
--- NOTE | 2019-01-07 12:07 | NUR ---
REASSESSMENT: PT IS RESTING IN BED, INSULIN GTT OFF. BLOOD SUGAR WAS UNDER 200 AT LUNCH TIME, EVEN AFTER EATING BREAKFAST ONLY ABOUT AN HOUR AND A HALF EARLIER. SHE IS ALERT AND ORIENTED, LUNGS CLEAR, SR, BP STABLE. SPOKE WITH DR. HENDRICKS AND HE STATED THAT IV FLUIDS COULD STOP WHEN INSULIN GTT STOPPED IF PT WAS EATING WELL. PT ATE ALL OF HER BREAKFAST TRAY AND HAS BEEN DRINKING FLUIDS SO IV FLUIDS STOPPED. PT'S NEPHEW AND DIL PHONED AND WERE UPDATED AFTER PT OK'D THEM TO BE TALKED WITH. NO OTHER REQUESTS FROM PT AT THIS TIME. CONTINUING TO MONITOR.
--- NOTE | 2019-01-07 12:24 | NUR ---
PT COMPLAINING OF HEARTBURN/NAUSEA AFTER EATING SOME TOMATO SOUP AT LUNCH. REGLAN GIVEN WITH LITTLE EFFECT SO ZOFRAN GIVEN. CONTINUING TO MONITOR.
--- NOTE | 2019-01-07 12:42 | NUR ---
PT'S NAUSEA IMPROVED. PT GIVEN WARM BLANKET AND RESTING WITH EYES CLOSED CURRENTLY.
--- NOTE | 2019-01-07 13:08 | NUR ---
PT C/O HEARTBURN/NAUSEA LIKE DISCOMFORT AGAIN. BREATHING HEAVILY, SBP 190S. PT REQUESTING GI COCKTAIL SAYING IT HAS HELPED BEFORE. DR. HENDRICKS NOTIFIED OF PT'S SYMPTOMS AND RECEIVED ORDER FOR THE GI COCKTAIL. CONTINUING TO MONITOR.
[2019-01-07 13:19] LABS: Anion Gap 11 mmol/L (6-16); Blood Urea Nitrogen 13 mg/dL (8-24); Bun/Creatinine Ratio 19.8 (12.0-20.0); CO2, Blood 20 mmol/L (21-32); Calcium, Blood 8.4 mg/dL (8.5-10.1); Chloride, Blood 107 mmol/L (98-108); Creatinine, Blood 0.66 mg/dL (0.40-1.00); Glomerular Filtration Rate >60 (60-); Glucose, Blood 255 mg/dL (70-99); Potassium, Blood 2.9 mmol/L (3.5-5.5); Sodium, Blood 138 mmol/L (136-145)
--- NOTE | 2019-01-07 13:46 | NUR ---
PT'S HEARTBURN AND DISCOMFORT RESOLVED AFTER GI COCKTAIL BUT SBP REMAINS IN THE 200S. DR. HENDRICKS NOTIFIED AND ALSO NOTIFIED OF POTASSIUM 2.9. RECEIVED ORDERS FOR HYDRALAZINE AND KCL, SEE ORDERS. PT RESTING QUIETLY WITH EYES CLOSED.
--- NOTE | 2019-01-07 15:30 | NUR ---
GI COCKTAIL WORKED FOR PT'S NAUSEA/HEARTBURN, BUT DISCOMFORT IS STARTING TO COME BACK AND PT IS DRY HEAVING. DR. YBARRA NOTIFIED AND RECEIVED ORDER FOR PEPCID, STOP ZOFRAN AND SWITCH REGLAN TO EVERY 4HRS PRN.
--- NOTE | 2019-01-07 16:23 | NUR ---
SHIFT SUMMARY: PT GOT OFF THE INSULIN GTT TODAY BUT HAS BEEN HAVING TROUBLE WITH REFLUX/NAUSEA THIS AFTERNOON. THE REFLUX HAS IMPROVED WITH THE GI COCKTAIL AND THEN THE PEPCID. SHE REMAINS ALERT AND ORIENTED, LUNGS ARE CLEAR, RA. SR WITH RATE IN THE 90S. HTN WITH SBP IN THE 140S NOW. PT VOIDING IN HER ATTENDS. FAMILY CAME IN THIS AFTERNOON AND WAS UPDATED. CONTINUING TO MONITOR.
--- NOTE | 2019-01-07 19:10 | NUR ---
[facility] RECEIVED REPORT FROM TAE GALEANA. PT IS CURRENTLY LAYING IN BED WITH HER EYES CLOSED. PROTONIX IS CURRENTLY INFUSING AT 10ML/HR. VITALS ARE STABLE. PT IS IN SINUS RHYTHM. NO FAMILY AT BEDSIDE. BED IS LOW AND LOCKED. CALL LIGHT WITHIN REACH.
--- NOTE | 2019-01-07 22:27 | NUR ---
UPDATE NO ACUTE CHANGES. PT STATES THAT NAUSEA/CHEST DISCOMFORT IS WORSE DEPENDING ON HER POSITION BUT STATES SHE HAS RELIEF IN HER CURRENT POSITION.
[2019-01-08 03:43] LABS: BASOPHILS ABSOLUTE AUTO 0.02 K/mm3 (0.00-0.23); BASOPHILS PERCENT AUTO 0 % (0-2); EOSINOPHILS PERCENT AUTO 0 % (0-6); Hematocrit 34.4 % (33.0-51.0); Hemoglobin 11.8 g/dL (11.5-16.0); IMMATURE GRAN ABSOLUTE AUTO 0.05 K/mm3 (0.00-0.10); IMMATURE GRAN PERCENT AUTO 0 % (0-1); LYMPHOCYTES ABSOLUTE AUTO 2.52 K/mm3 (0.84-5.20); LYMPHOCYTES PERCENT AUTO 22 % (21-46); MONOCYTES ABSOLUTE AUTO 0.74 K/mm3 (0.16-1.47); MONOCYTES PERCENT AUTO 7 % (4-13); Mean Corpuscular HGB 32.4 pg (26.0-34.0); Mean Corpuscular HGB Conc 34.3 g/dL (31.5-36.5); Mean Corpuscular Volume 95 fL (80-100); Mean Platelet Volume 10.3 fL (9.1-12.4); NEUTROPHILS ABSOLUTE AUTO 7.99 K/mm3 (1.96-9.15); NEUTROPHILS PERCENT AUTO 71 % (41-73); Platelet Count 331 K/mm3 (150-400); RDW Coefficient Variation 12.7 % (11.7-14.2); RDW Standard Deviation 44.4 fL (35.1-46.3); Red Blood Cell Count 3.64 M/mm3 (3.80-5.20); White Blood Cell Count 11.32 K/mm3 (4.00-11.30)
[2019-01-08 04:01] LABS: Alanine Aminotransfer (ALT/SGP 13 U/L (12-78); Albumin, Blood 3.4 g/dL (3.4-5.0); Albumin/Globulin Ratio 1.1 (0.8-1.8); Alk Phos 81 U/L (50-136); Anion Gap 10 mmol/L (6-16); Aspartate Aminotrans (AST/SGOT 9 U/L (12-37); Bilirubin, Total 0.5 mg/dL (0.1-1.0); Blood Urea Nitrogen 13 mg/dL (8-24); Bun/Creatinine Ratio 18.9 (12.0-20.0); CO2, Blood 21 mmol/L (21-32); Calcium, Blood 8.8 mg/dL (8.5-10.1); Chloride, Blood 106 mmol/L (98-108); Creatinine, Blood 0.69 mg/dL (0.40-1.00); Globulin, Blood 3.2 g/dL (2.2-4.0); Glomerular Filtration Rate >60 (60-); Glucose, Blood 282 mg/dL (70-99); Potassium, Blood 4.2 mmol/L (3.5-5.5); Sodium, Blood 137 mmol/L (136-145); Total Protein, Blood 6.6 g/dL (6.4-8.2)
--- NOTE | 2019-01-08 06:39 | NUR ---
SHIFT SUMMARY NO ACUTE OR MAJOR EVENTS OVERNIGHT. PT SLEPT THROUGHOUT NIGHT. AT BEGINNING OF SHIFT PT STATED THAT SHE ONLY HAS HER EPIGASTRIC/ABD DISCOMFORT (ALONG WITH NAUSEA) IN CERTAIN POSITIONS AND SHE WAS COMFORTABLE IN HER CURRENT STATE. REGLAN GIVES HER RELIEF. PT IS HYPERTENSIVE AND HYDRALAZINE WAS GIVEN TWICE OVERNIGHT, WITH MODERATE IMPROVEMENT IN BP. SHE REMAINS LETHARGIC, BUT IS RESPONSIVE AND ORIENTED X 3. PROTONIX GTTP IS INFUSING AT 10ML/HR. SHE HAD INCREASED ERUCTATION OVERNIGHT. LABS IMPROVING, ASIDE BLOOD SUGARS REMAIN ELEVATED. NO VOID OVERNIGHT (SHE IS AWARE OF WHEN SHE URINATES, HOWEVER, ONLY DURING OR AFTER THE FACT). NO BM OVERNIGHT. NO FAMILY AT BEDSIDE. BED LOW AND LOCKED, AND CALL LIGHT WITHIN REACH.
--- NOTE | 2019-01-08 07:29 | NUR ---
START OF SHIFT NOTE: RECEIVED REPORT FROM DIPIKA SZYMANSKI RN, ASSUMED CARE, PATIENT IS AWAKE, ORIENTED, BUT SLIGHTLY LETHARGIC, ABLE TO ANSWER ALL QUESTIONS APPROPRIATELY, FOLLOWS COMMANDS, PATIENT INCONTINENT OF URINE, WEARS ATTENDS, BED BATH AND LINEN CHANGE, ALSO GOWN CHANGED, PATIENT ABLE TO ROLL FROM SIDE TO SIDE WITHOUT PROBLEM, REPOSITIONS SELF IN BED, BOOSTED UP, PATIENT ASSUMED POSITION OF COMFORT D/T SEVERE ACID REFLUX AND BURNING, LUNG SOUNDS ARE CLEAR BUT DIMINISHED, NSR, HR FROM 80'S TO LOW 100'S, SBP'S IN 140'S, BOWEL TONES ARE HYPERACTIVE IN UPPER QUADRANTS BUT HYPOACTIVE IN LOWER QUADRANTS, 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
--- NOTE | 2019-01-08 09:30 | NUR ---
PATIENT RECEIVED 500 CC BOLUS OF LR D/T INABILITY TO EAT OR DRINK, AND MULTIPLE EMESIS EPISODES, TOLERATED WELL, AFTER BOLUS INFUSED CONTINUE LR AT 100 CC/HR FOR IV MAINTENANCE.
--- NOTE | 2019-01-08 09:32 | NUR ---
POWERGLIDE DRESSING CHANGED, TIP KINKED AND IVF'S UNABLE TO INFUSE, REDRESSED WITH STERILE TECHNIQUE, FLUSHED, IVF'S INFUSING.
--- NOTE | 2019-01-08 10:10 | NUR ---
CALLED DR. HENDRICKS D/T PATIENT'S CONTINUOUS SEVERE EPIGASTRIC PAIN, AND POSSIBLE DEHYDRATION, NEW ORDERS RECEIVED.
--- NOTE | 2019-01-08 10:12 | NUR ---
PATIENT CONTINUES TO C/O PAIN AND DISCOMFORT IN EPIGASTRIC REGION, DR. HENDRICKS CALLED AGAIN AND NEW ORDERS RECEIVED.
--- NOTE | 2019-01-08 10:53 | NUR ---
pt sleeping, physician in to see patient. review of medications with nursing. will follow up with patient and family information on advance directive given.
--- NOTE | 2019-01-08 11:04 | NUR ---
PATIENT'S NEPHEW CALLED AND UPDATE ON PT CONDITION WAS PROVIDED.
--- NOTE | 2019-01-08 12:29 | NUR ---
PATIENT ASLEEP AFTER TAKING GI COCKTAIL, AWOKE EASILY TO SPEECH FOR GLUCOSE CHECK AND TO TAKE HER CARAFATE, REPOSITIONS SELF FOR COMFORT, STATED THAT SHE "FEELS A LITTLE BETTER", RFUSED LUNCH, ONLY KEPT PEACHES AND MILK, CALL LIGHT IN REACH, WILL CONTINUE TO MONITOR.
--- NOTE | 2019-01-08 14:50 | NUR ---
PATIENT'S NEPHEW IN TO SEE PATIENT, PATIENT SLEEPING, NEPHEW DID NOT WANT TO WAKE PATIENT, UPDATE ON HER CONDITION WAS PROVIDED.
--- NOTE | 2019-01-08 15:06 | NUR ---
PATIENT RECEIVED 10 MG HYDRALAZINE FOR SBP >180, ORDERED, WILL CONTINUE TO MONITOR.
--- NOTE | 2019-01-08 17:44 | NUR ---
SHIFT SUMMARY NOTE: NO ACUTE EVENTS DURING THIS SHIFT, PATIENT WAS QUITE NAUSEOUS THIS MORNING WITH SMALL AMOUNT OF EMESIS, RECEIVED REGLAN ORDERED AND FELT BETTER, FELL ASLEEP, AM MEDS HELD D/T PATIENT'S NAUSEA, DR. HENDRICKS AWARE, PATIENT ATE MINUTE AMOUNTS OF BREAKFAST AND LUNCH, AND SLEPT MOST OF THE DAY, IVF MAINTENANCE FLUIDS, LR AT 100CC/HR, WERE STARTED, PRECEDED BY A 500 CC BOLUS, PATIENT ALSO RECEIVED HYDRALAZINE 10 MG IV ONCE FOR ELEVATED SBP > 160, SBP'S ARE NOW IN 140'S, EATING DINNER, OVERALL STATED THAT SHE "FELT MUCH BETTER", NEPHEW IN TO SEE PATIENT AT NOON, BUT DID NOT WANT TO DISTURB HER, PROVIDED UPDATE TO HIM, PATIENT IS INCONTINENT AND BED WAS CHANGED TWICE D/T LARGE AMOUNT OF URINATION AND HEAVY WET ATTENDS, PATIENT IS A TYPE 2 DIABETIC AND ON LOW SLIDING SCALE, CHEMSTICKS SHOWED BG IN 200'S, COVERED ACCORDINGLY, ALSO RECEIVED LANTUS AT DINNER TIME, CALL LIGHT IN REACH, WILL CONTINUE TO MONITOR, AND GIVE REPORT TO ONCOMING EMBEDDED SOFTWARE MANAGER.
--- NOTE | 2019-01-08 19:15 | NUR ---
ASSUMED PT CARE FROM LISSETT CHÁVEZ. PT SITTING UP IN BED; ALERT AND ORIENTED AND ABLE TO MAKE NEEDS KNOWN. PT C/O 02/18 ABDOMINAL, ACID REFLUX PAIN. REQUESTING ANOTHER "GI COCKTAIL". INFORMED PT THAT I WOULD REVIEW THE CHART AND SEE IF SHE HAD ORDERS FOR A GI COCKTAIL AND IF SO, IF SHE WAS DUE FOR A DOSE. CALL LIGHT LEFT WITHIN REACH.
--- NOTE | 2019-01-08 20:30 | NUR ---
UPDATED PT THAT GI COCKTAIL WAS UNAVAILABLE AND THAT THE PHYSICIAN WOULD NEED TO BE CALLED. PT VERBALIZED UNDERSTANDING AND WAS STILL C/O EPIGASTRIC PAIN.
--- NOTE | 2019-01-08 20:45 | NUR ---
CALLED AND TALKED WITH MAZIN BOTELLO REGARDING PT REQUEST FOR GI COCKTAIL. NEW ORDERS FOR Q6 PRN.
[2019-01-09 03:33] LABS: Anion Gap 5 mmol/L (6-16); Blood Urea Nitrogen 13 mg/dL (8-24); Bun/Creatinine Ratio 20.4 (12.0-20.0); CO2, Blood 27 mmol/L (21-32); Calcium, Blood 8.6 mg/dL (8.5-10.1); Chloride, Blood 105 mmol/L (98-108); Creatinine, Blood 0.64 mg/dL (0.40-1.00); Glomerular Filtration Rate >60 (60-); Glucose, Blood 131 mg/dL (70-99); Potassium, Blood 3.3 mmol/L (3.5-5.5); Sodium, Blood 137 mmol/L (136-145)
--- NOTE | 2019-01-09 06:18 | NUR ---
END OF SHIFT SUMMARY PT HASN'T C/O ANY MORE PAIN SINCE GI COCKTAIL WAS ADMINSITERED PRIOR TO PT GOING TO SLEEP. MINIMAL SLEEP DISTURBANCES D/T PT BEING INDEPENDENT WITH REPOSITIONING AND HER ABILITY TO USE CALL LIGHT FOR ATTEND CHANGES. PT REQUIRED HER ATTEND TO BE CHANGE X1 THIS SHIFT. CALL LIGHT IS WITHIN REACH; PT ABLE TO MAKE NEEDS KNOWN. WILL CONTINUE TO MONITOR UNTIL REPORT IS HANDED OFF TO ONCOMING RN.
--- NOTE | 2019-01-09 07:45 | NUR ---
START OF SHIFT NOTE: RECEIVED REPORT FROM TYSHAWN ESTEBAN RN, ASSUMED CARE, PATIENT AWAKE, ALERT AND ORIENTED, BLOOD GLUCOSE 66 THIS AM, PATIENT ASYMPTOMATIC, PEPSI GIVEN AND PATIENT DRANK WITHOUT ANY S/S OF PAIN/DISCOMFORT IN ESOPHAGUS/EPIGASTRIC AREA, WILL GIVE GI COCKTAIL PRIOR TO BREAKFAST, LUNG SOUNDS CLEAR, NSR WITH HR IN 80'S, 100 % ON RA, BOWEL TONES PRESENT BUT HYPOACTIVE THIS AM, PATIENT IS INCONTINENT, KNOWS THAT SHE IS GOING OR HAS GONE, BUT WAITS UNTIL SHE URINATED IN ATTENDS, SCD'S OFF D/T PATIENT REFUSAL, CALL LIGHT IN REACH, WILL CONTINUE TO MONITOR.
--- NOTE | 2019-01-09 10:57 | NUR ---
STEP DAUGHTER AT BEDSIDE, INFORMATION MATERIAL ABOUT ADVANCE DIRECTIVE PROVIDED AND EXPLAINED, PATIENT AND STEP DAUGHTER WILL DISCUSS AND FILL OUT, CALL LIGHT IN REACH, WILL CONTINUE TO MONITOR.
--- NOTE | 2019-01-09 11:32 | NUR ---
DR. HENDRICKS IN TO SEE PATIENT, NEW ORDERS RECEIVED, PATIENT NOW MEDICAL STATUS.
--- NOTE | 2019-01-09 13:17 | NUR ---
PATIENT RESTING COMFORTABLY WITH EYES CLOSED, CALL LIGHT IN REACH, WILL CONTINUE TO MONITOR.
--- NOTE | 2019-01-09 17:42 | NUR ---
PATIENT TRANSFERRED TO ROOM 208 AFTER REPORT GIVEN VIA PHONE TO LISSETT PAULINO, ALL BELONGINGS AND MEDICATIONS WITH PATIENT.
--- NOTE | 2019-01-10 06:09 | NUR ---
SHIFT SUMMARY PT RESTED WELL T/O NIGHT. AAOX4. BLOOD SUGAR 103 LAST NIGHT. GOOD PO INTAKE + OUTPUT THIS SHIFT. INDEPENDENT IN ROOM. NO ACUTE CHANGES OVER NIGHT. PT RESTING WELL THIS AM + AT THIS TIME. PT CONTINUES TO REFUSE SCDs THIS SHIFT, CONTINUE TO ENCOURAGE. CALL LIGHT IN REACH, [place].
[2019-01-10] MEDS ORDERED: INSULANPEN SC (12:32)
[2019-01-10] MEDS ORDERED: Humalog Mi100 UNIT/4 SC (12:34)
[2019-01-10] MEDS ORDERED: FAMO20 PO (12:35)
[2019-01-10] MEDS ORDERED: FLUC150A PO (12:35)
[2019-01-10] MEDS ORDERED: MELATONIN5 M1 PO (12:37)
[2019-01-10] MEDS ORDERED: METO10 PO (12:38)
[2019-01-10] MEDS ORDERED: SUCR1 PO (12:41)
--- NOTE | 2019-01-10 13:39 | NUR ---
DISCHARGE PT D/C TO HOME WITH FAMILY. D/C INSTRUCTIONS & EDUCATION PROVIDED. PT STATES UNDERSTNDING, ASKING QUESTIONS APROPRIATLEY. PT ESCORTED TO PRIVATE VEHICLE VIA W/C. PT INSTRUCTED TO F/U ISABEL FOR ANY PROBLEMS OR CONCERNS.
[2019-03-01] MEDS ORDERED: INSULANPEN SC (01:13)
[2019-03-01] MEDS ORDERED: GABA100 PO (01:16)
[2019-03-02] MEDS ORDERED: ERYT250 PO (11:53)
[2019-03-02] MEDS ORDERED: METO10 PO (11:54)
[2019-03-02] MEDS ORDERED: Prinivil10 MG PO (11:55)
[2019-03-02] MEDS ORDERED: OMEPRAZOLE20 MG PO (11:55)
[2019-03-02] MEDS ORDERED: POTA10T PO (11:56)
== END 2019-01-10 13:54 | disposition home or self-care (01) | DRG 637 ==
LOC: ER 15:23 → ICUW 18:48 → ICUE 20:07 → ICUW 01-07 09:29 → SURS 01-09 17:26
PROVIDERS: Emergency Medicine; Internal Medicine; Nurse Practitioner Acute Care; Physician Assistant; ADMIT Family Medicine
DX: E11.10 Type 2 diabetes mellitus with ketoacidosis without coma (principal); A41.9 Sepsis, unspecified organism; R65.20 Severe sepsis without septic shock; Z79.4 Long term (current) use of insulin; K20.9 Esophagitis, unspecified; K44.9 Diaphragmatic hernia without obstruction or gangrene; J44.9 Chronic obstructive pulmonary disease, unspecified; G47.33 Obstructive sleep apnea (adult) (pediatric); E78.5 Hyperlipidemia, unspecified; Z86.73 Personal history of transient ischemic attack (TIA), and cerebral infarction without residual deficits; E11.43 Type 2 diabetes mellitus with diabetic autonomic (poly)neuropathy; K31.84 Gastroparesis
CPT/HCPCS: 36415; 51701; 71045; 74177; 80048; 80053; 81003; 82010; 82272; 82803; 82947; 83605; 83690; 83735; 84484; 85025; 87040; 93005; 93010; 96361; 96365-59; 96366; 96368; 96375; 99285-25; C1751; C9113; J0360; J0744; J1650; J1815; J2405; J2765; J3475; J3480; J7030; J7042; J7120; Q9967

== ENCOUNTER 2020-02-18 08:34 | Emergency (ER) | payer MEDICARE ==
[~2020-02-18] VITALS: Ht 160 cm; Wt 46.7 kg
[~2020-02-18 08:34] MED LIST changes: +AMIT25 PO; +ATOR10 PO; +Aspirin EC81 MG PO; +B-121000 MCG PO; +DULO60 PO; +ERYT250 PO; +FAMO20 PO; +FLUC150A PO; +GABA100 PO; +GABA300 PO; +Humalog Mi100 UNIT/4 SC; +Humalog100 UNIT/3 SC; +INSULANPEN SC; +MELATONIN5 M1 PO; +Metformin HCl850 MG PO; +OMEPRAZOLE20 MG PO; +Oxybutynin Chlor5 M1 PO; +PANT20 PO; +POTA10T PO; +Prinivil10 MG PO; +SPIR25 PO; +SUCR1 PO; +TRESIBA FL100 UNIT/1 SC; +TRULICITY0.75 MG/0. SC
[2020-02-18 09:25] LABS: BASOPHILS ABSOLUTE AUTO 0.06 K/mm3 (0.00-0.23); BASOPHILS PERCENT AUTO 0 % (0-2); EOSINOPHILS ABSOLUTE AUTO 0.02 K/mm3 (0.00-0.68); EOSINOPHILS PERCENT AUTO 0 % (0-6); Hematocrit 39.8 % (33.0-51.0); Hemoglobin 13.8 g/dL (11.5-16.0); IMMATURE GRAN ABSOLUTE AUTO 0.07 K/mm3 (0.00-0.10); IMMATURE GRAN PERCENT AUTO 0 % (0-1); LYMPHOCYTES PERCENT AUTO 16 % (21-46); MONOCYTES PERCENT AUTO 4 % (4-13); Mean Corpuscular HGB 31.9 pg (26.0-34.0); Mean Corpuscular HGB Conc 34.7 g/dL (31.5-36.5); Mean Corpuscular Volume 92 fL (80-100); Mean Platelet Volume 11.1 fL (9.1-12.4); NEUTROPHILS PERCENT AUTO 79 % (41-73); Platelet Count 373 K/mm3 (150-400); RDW Coefficient Variation 12.2 % (11.7-14.2); RDW Standard Deviation 40.8 fL (35.1-46.3); Red Blood Cell Count 4.33 M/mm3 (3.80-5.20); White Blood Cell Count 16.15 K/mm3 (4.00-11.30)
[2020-02-18 09:34] LABS: Alanine Aminotransfer (ALT/SGP 21 U/L (12-78); Albumin, Blood 4.2 g/dL (3.4-5.0); Albumin/Globulin Ratio 1.1 (0.8-1.8); Alk Phos 102 U/L (50-136); Anion Gap 16 mmol/L (6-16); Aspartate Aminotrans (AST/SGOT 20 U/L (12-37); Bilirubin, Total 0.9 mg/dL (0.1-1.0); Blood Urea Nitrogen 23 mg/dL (8-24); Bun/Creatinine Ratio 31.9 (12.0-20.0); CO2, Blood 18 mmol/L (21-32); Calcium, Blood 10.7 mg/dL (8.5-10.1); Chloride, Blood 100 mmol/L (98-108); Creatinine, Blood 0.72 mg/dL (0.40-1.00); Globulin, Blood 3.9 g/dL (2.2-4.0); Glomerular Filtration Rate >60 (60-); Glucose, Blood 343 mg/dL (70-99); Potassium, Blood 3.8 mmol/L (3.5-5.5); Sodium, Blood 134 mmol/L (136-145); Total Protein, Blood 8.1 g/dL (6.4-8.2)
[2020-02-18 11:35] LABS: Base Excess Venous -5.5 mmol/L; Bicarbonate Venous 20.3 mmol/L (24.0-30.0); PCO2 Venous 30.5 mmHg (38-42); PO2 Venous 39.4 mmHg (38-42); pH Blood Venous 7.41 (7.34-7.37)
== END 2020-02-18 13:13 | disposition home or self-care (01) ==
LOC: ER 08:34
PROVIDERS: Emergency Medicine
DX: K91.0 Vomiting following gastrointestinal surgery (principal); G89.18 Other acute postprocedural pain; R10.9 Unspecified abdominal pain; R07.9 Chest pain, unspecified; E11.43 Type 2 diabetes mellitus with diabetic autonomic (poly)neuropathy; K31.84 Gastroparesis; I10 Essential (primary) hypertension; E78.5 Hyperlipidemia, unspecified; J44.9 Chronic obstructive pulmonary disease, unspecified; Z88.8 Allergy status to other drugs, medicaments and biological substances; Z79.4 Long term (current) use of insulin; Z79.899 Other long term (current) drug therapy; Z86.73 Personal history of transient ischemic attack (TIA), and cerebral infarction without residual deficits
CPT/HCPCS: 36415; 71045; 80053; 82803; 83690; 84484; 85025; 93005; 93010; 96374; 96375; 99283-25; C9113; J2405; J2765

== ENCOUNTER 2020-02-22 22:13 | Inpatient (IN) | payer MEDICARE ==
[~2020-02-22] VITALS: Ht 157.5 cm; Wt 59.6 kg
[2020-02-22 22:40] LABS: Calcium, Ionized (POC) 1.22 mmol/L (1.10-1.46); Chloride (POC) 93 mmol/L (98-108); Creatinine (POC) 1.6 mg/dL (0.6-1.0); Glucose (ISTAT POC) 389 mg/dL (70-99); Hemoglobin (POC) 15.6 g/dL (12.0-16.0); Potassium (POC) 4.6 mmol/L (3.5-5.5); Sodium (POC) 129 mmol/L (135-148); Total CO2 (POC) 24 mmol/L (21-32)
[2020-02-22 23:11] LABS: Albumin, Blood 3.4 g/dL (3.4-5.0); Albumin/Globulin Ratio 0.9 (0.8-1.8); Bilirubin, Total 0.7 mg/dL (0.1-1.0); Bun/Creatinine Ratio 40.3 (12.0-20.0); Calcium, Blood 9.7 mg/dL (8.5-10.1); Creatinine, Blood 1.44 mg/dL (0.40-1.00); Globulin, Blood 3.8 g/dL (2.2-4.0); Potassium, Blood 3.7 mmol/L (3.5-5.5); Total Protein, Blood 7.2 g/dL (6.4-8.2)
[2020-02-22 23:13] LABS: Troponin I 1.34 ng/mL (0.000-0.040)
[2020-02-22 23:25] LABS: Creatine Kinase MB 11.8 ng/mL (0.0-3.6); Creatine Kinase MB Index 4.7 (0.0-4.0)
[2020-02-22 23:34] LABS: BASOPHILS ABSOLUTE AUTO 0.05 K/mm3 (0.00-0.23); BASOPHILS PERCENT AUTO 0 % (0-2); EOSINOPHILS PERCENT AUTO 0 % (0-6); Hematocrit 42.1 % (33.0-51.0); Hemoglobin 14.8 g/dL (11.5-16.0); IMMATURE GRAN PERCENT AUTO 1 % (0-1); LYMPHOCYTES ABSOLUTE AUTO 2.84 K/mm3 (0.84-5.20); LYMPHOCYTES PERCENT AUTO 10 % (21-46); MONOCYTES ABSOLUTE AUTO 1.69 K/mm3 (0.16-1.47); MONOCYTES PERCENT AUTO 6 % (4-13); Mean Corpuscular HGB 32.5 pg (26.0-34.0); Mean Corpuscular HGB Conc 35.2 g/dL (31.5-36.5); Mean Corpuscular Volume 92 fL (80-100); Mean Platelet Volume 12.3 fL (9.1-12.4); NEUTROPHILS PERCENT AUTO 84 % (41-73); Platelet Count 385 K/mm3 (150-400); RDW Coefficient Variation 12.1 % (11.7-14.2); RDW Standard Deviation 41.6 fL (35.1-46.3); Red Blood Cell Count 4.56 M/mm3 (3.80-5.20); White Blood Cell Count 28.98 K/mm3 (4.00-11.30)
[2020-02-23] MEDS ORDERED: Cleocin HCl150 MG PO (00:12)
[2020-02-23] MEDS ORDERED: CODACE30 PO (00:13)
[2020-02-23] MEDS ORDERED: METF500C PO (00:14)
[2020-02-23] MEDS ORDERED: ATOR20 PO (00:15)
[2020-02-23 00:38] LABS: Source, Urine Catheter
[2020-02-23 00:41] LABS: Appearance, Urine Clear (Clear); Bilirubin, Urine Neg (Neg); Blood, Urine Neg (Neg); Color, Urine Amber (P-Yellow); Glucose Qualitative, Urine 4+ (Neg); Ketones, Urine 3+ (Neg); Leukocyte Esterase, Urine Neg (Neg); Nitrite, Urine Neg (Neg); Protein, Urine 2+ (Neg); Specific Gravity, Urine 1.015 (1.003-1.022); Urobilinogen, Urine NORM (Normal)
[2020-02-23 00:47] LABS: Bacteria Few /hpf; Hyaline Casts 0-2 /lpf (0-2); Red Blood Cells, Urine 0-2 /hpf (0-2); Squamous Epithelial Cells Few /hpf (Few)
--- NOTE | 2020-02-23 01:35 | NUR ---
ASSUMED CARE NOTE: ASSUMED CARE OF PT AT 0135, RECEVIED REPORT FROM [facility]. PT ARRIVED TO UNTIL VIA STRETCHER. PT IS ALERT AND ORIENTED TO SELF, TIME, PLACE. PT IS NOT ABLE TO RECALL RECENT EVENTS. STS " I THINK I JUST KEPT FALLING, THAT IS WHY I AM HERE" PT IS A POOR CLINICAL SUPPORT ASSOCIATE, UNABLE TO RECALL WHAT MEDICATIONS SHE TAKES AT HOME. PT ARRIVED ON 4L OF 02 VIA NC, SPO2 AT 98%, 02 TITRATED TO 2L OF 02. LUNG SOUNDS DIMINISHED T/O PT IN SINUS TACH WITH HR AT 102. BILAT RADIAL PULSES FAINT. BILAT PEDAL PULSES +2. RIGHT IJ CENTRAL LINE IN PLACE, ER DOCTOR WILL COME AND SUTURE LINE FURTHER. ACTIVE BOWEL TONES IN ALL FOUR QUADRANTS. TEMP NGO IN PLACE, PATENT AND DRAINING TO GRAVITY. PT ARRIVED ON 1MCG/MIN OF LEVOPHED, TITRATED TO 2MCG/MIN ON ARRIVAL. WILL CONTINUE TO MONITOR PT T/O SHIFT.
[2020-02-23 03:12] LABS: PCO2 Arterial 32.5 mmHg (35-45); PO2 Arterial 86.2 mmHg (80-100); pH Blood Arterial 7.39 (7.35-7.45)
[2020-02-23 03:35] LABS: U Amphetamine Screen Not Detected; U Barbituate Screen Not Detected; U Benzodiazapine Screen Not Detected; U Buprenorphine Screen Not Detected; U Cannabinoids Screen DETECTED; U Cocaine Screen Not Detected; U Methadone Screen Not Detected; U Methamphetamine Screen Not Detected; U Opiates Screen Not Detected; U Oxycodone Screen Not Detected; U Phencyclidine Screen Not Detected; U Propoxyphene Screen Not Detected
--- NOTE | 2020-02-23 04:24 | NUR ---
CAME TO SUTURE CENTRAL LINE AND CHANGED DRESSING. PT TOLERATED PROCEDURE WELL.
[2020-02-23 05:21] LABS: BASOPHILS ABSOLUTE AUTO 0.06 K/mm3 (0.00-0.23); BASOPHILS PERCENT AUTO 0 % (0-2); EOSINOPHILS ABSOLUTE AUTO 0.02 K/mm3 (0.00-0.68); EOSINOPHILS PERCENT AUTO 0 % (0-6); Hematocrit 33.9 % (33.0-51.0); Hemoglobin 11.7 g/dL (11.5-16.0); IMMATURE GRAN ABSOLUTE AUTO 0.17 K/mm3 (0.00-0.10); IMMATURE GRAN PERCENT AUTO 1 % (0-1); LYMPHOCYTES ABSOLUTE AUTO 4.92 K/mm3 (0.84-5.20); LYMPHOCYTES PERCENT AUTO 17 % (21-46); MONOCYTES ABSOLUTE AUTO 2.41 K/mm3 (0.16-1.47); MONOCYTES PERCENT AUTO 8 % (4-13); Mean Corpuscular HGB 32.1 pg (26.0-34.0); Mean Corpuscular HGB Conc 34.5 g/dL (31.5-36.5); Mean Corpuscular Volume 93 fL (80-100); Mean Platelet Volume 11.7 fL (9.1-12.4); NEUTROPHILS ABSOLUTE AUTO 22.19 K/mm3 (1.96-9.15); NEUTROPHILS PERCENT AUTO 75 % (41-73); Platelet Count 350 K/mm3 (150-400); RDW Standard Deviation 41.3 fL (35.1-46.3); Red Blood Cell Count 3.65 M/mm3 (3.80-5.20); White Blood Cell Count 29.77 K/mm3 (4.00-11.30)
[2020-02-23 05:50] LABS: Bun/Creatinine Ratio 41.3 (12.0-20.0); Calcium, Blood 8.4 mg/dL (8.5-10.1); Creatinine, Blood 1.26 mg/dL (0.40-1.00); Potassium, Blood 2.9 mmol/L (3.5-5.5)
--- NOTE | 2020-02-23 06:12 | NUR ---
SHIFT SUMMARY: SEE PREVIOUS NOTE. PT CONTINUES TO BE DROWSY, HOWEVER RESPONDS TO VERBAL AND PAINFUL STIMULI. PT HAS ASSISTED WITH TURNS. PT UNABLE TO STAY AWAKE LONG ENOUGH TO FOLLOW DIRECTIONS FOR BEDSIDE SWALLOW EVAL, UNSAFE TO TAKE ORAL MEDS AT THIS TIME. PT REMAINS ON 2L OF 02 VIA NC, SPO2 AT 95% PT IN SINUS RYTHYM WITH HR IN THE 90'S. LEVOPHED AT 5MCG/MIN FOR BP SUPPORT. PT HAS NOT HAD A BM THIS SHIFT. JENI MALDONADO, DRAINING MOISES COLORED URINE, 200ML OUTPUT SINCE TRANSFER TO ICU. PT AFEBRILE. WILL CONTINUE TO MONITOR PT UNTIL REPORT IS GIVEN TO ONCOMING SHIFT.
--- NOTE | 2020-02-23 10:20 | NUR ---
[place] of Care: Care assumed at 0700hr. Patient sleeping, but roused to verbal stimuli. Very drowsy when awake, and quickly falls back to sleep. Oriented to self, and place when awake, denies pain or discomfort. Levophed gtt at 6mcg/min at shift change, systolic BP in low 100's, MAP's 60-70. Central line to rt IJ patent and intact. Ferrer cath patent and intact, draining clear yellow urine. Dr. Ward in to see patient early this moring. Recieved orders for x1 LR bolus over 2hr, and to D/C maintenance NS. Also received order for repeat EKG. Patient sleeping, appears calm and comfortble, will continue to monitor.
--- NOTE | 2020-02-23 11:10 | NUR ---
Echocardiogram using 0.50ml of Definity contrast performed.
--- NOTE | 2020-02-23 18:46 | NUR ---
Shift Summary: Patient slept throughout entire shift, but continues to rouse to verbal stimuli, oriented to self, place, and date when awake. Continues to deny pain, discomfort, SOB, or dyspnea. Patient placed on CPAP 5-15 with 4L bleed-in early afternoon per snoring respirations (spO2 remained greater than 95%). CPAP effect to decrease and nearly resolve all snoring respirations. No signs of respiratory distress throughout shift. Levophed titrated down from 6mcg/min then placed on stand-by aprox 1600hr. Systolic BP then decreased to 60's-70's at approx 1800hr, levophed gtt then re-started at 2mcg/min, systolic BP's now low 100's, MAP's 70's. Patient also noted to be hypoglycemic this shift. Blood glucose at approx 1200hr of 45, 1/2 amp D50% given, and blood glucose increased to 110 at approx 1300hr. 1800hr glucose- 33, received order per Dr. Ward for 1/2 amp D50%, glucose then repeated 15min after D50%, and noted to be 65. Received additional order per Dr. Ward for 1/2 am D50% and to start D10% at 30ml/hr. Glucose at this time- 119. Central line to rt IJ remains patent and intact, infusing without difficulty. Ferrer cath remains patent and intact, draining clear yellow urine. Also received order per Dr. Ward for cardiology consult. Consult called to Dr. Umaña, updated on patient's condition and diagnosis.
--- NOTE | 2020-02-23 22:53 | NUR ---
ASSUMED CARE OF PT, REPORT RCV'D FROM LISSETT HAMEED. PT ALERT TO SELF/PLACE, FOLLOWS COMMANDS AND ATTEMPTS TO WEAKLY. PT ON CPAP WITH SATS IN IN LOW 90'S, PT DESATS TO LOW 80'S WHILE SLEEPING. PT ON D10@ 30 MLS/HR WITH Q2 CBG. 2100 CBG 165, D10 PLACED ON STANDBY, WILL REASSESS AT 2300. VSS AT THIS TIME. PT DENIES NEEDS AT THIS TIME. SEE FULL SHIFT ASSESSMENT.
--- NOTE | 2020-02-23 23:00 | NUR ---
ASSUMED CARE NOTE: ASSUMED CARE OF PT AT 2315, RECEVIED REPORT FROM GREG GALEANA. PT IS DROWSY, HOWEVER WHEN ALERT, SHE IS ORIENTED TO SELF/TIME/PLACE, ABLE TO FOLLOW COMMANDS AND COMMUNICATE NEEDS. PT ON 2L OF VIA NC, SPO2 READING 97% SPO2 FORHEAD MONITOR REPOSITONED TO LEFT SIDE TEMPORAL SITE. PT IN SINUS RYTHYM WITH HR IN THE 90'S. VSS. LEVOPHED TURNED OFF. TEMP NGO PATNET, DRAINING YELLOW CLEAR URINE. CENTRAL LINE TO R IJ LEAKING, WILL CHANGE DRESSING. BED AT LOWEST LEVEL.
[2020-02-24 03:57] LABS: BASOPHILS ABSOLUTE AUTO 0.03 K/mm3 (0.00-0.23); BASOPHILS PERCENT AUTO 0 % (0-2); EOSINOPHILS ABSOLUTE AUTO 0.45 K/mm3 (0.00-0.68); EOSINOPHILS PERCENT AUTO 3 % (0-6); Hematocrit 31.4 % (33.0-51.0); Hemoglobin 11.1 g/dL (11.5-16.0); IMMATURE GRAN ABSOLUTE AUTO 0.07 K/mm3 (0.00-0.10); IMMATURE GRAN PERCENT AUTO 1 % (0-1); LYMPHOCYTES ABSOLUTE AUTO 2.76 K/mm3 (0.84-5.20); LYMPHOCYTES PERCENT AUTO 18 % (21-46); MONOCYTES ABSOLUTE AUTO 0.93 K/mm3 (0.16-1.47); MONOCYTES PERCENT AUTO 6 % (4-13); Mean Corpuscular HGB 32.8 pg (26.0-34.0); Mean Corpuscular HGB Conc 35.4 g/dL (31.5-36.5); Mean Corpuscular Volume 93 fL (80-100); Mean Platelet Volume 11.6 fL (9.1-12.4); NEUTROPHILS ABSOLUTE AUTO 10.72 K/mm3 (1.96-9.15); NEUTROPHILS PERCENT AUTO 72 % (41-73); Platelet Count 284 K/mm3 (150-400); RDW Coefficient Variation 12.4 % (11.7-14.2); RDW Standard Deviation 41.9 fL (35.1-46.3); Red Blood Cell Count 3.38 M/mm3 (3.80-5.20); White Blood Cell Count 14.96 K/mm3 (4.00-11.30)
[2020-02-24 04:12] LABS: Anion Gap 8 mmol/L (6-16); Blood Urea Nitrogen 24 mg/dL (8-24); Bun/Creatinine Ratio 34.1 (12.0-20.0); CO2, Blood 24 mmol/L (21-32); Calcium, Blood 8.2 mg/dL (8.5-10.1); Chloride, Blood 106 mmol/L (98-108); Glomerular Filtration Rate >60 (60-); Glucose, Blood 236 mg/dL (70-99); Potassium, Blood 3.6 mmol/L (3.5-5.5); Sodium, Blood 138 mmol/L (136-145)
--- NOTE | 2020-02-24 06:16 | NUR ---
SHIFT SUMMARY: PT IS A LITTLE MORE ALERT, ABLE TO COMMUNICATE NEEDS. PT HAS BEEN C/O DRY MOUTH, ORAL CARE BEING GIVEN Q2HRS. PT HAS BEEN ON 2L OF O2 VIA NC SINCE 2299, SPO2 AT 98% VSS. PT HAS BEEN OFF LEVOPHED SINCE 2299, BP STABLE, MAP ABOVE 65. PT HAS BEEN IN SINUS RYTHYM WITH HR IN THE 90'S. PT HAS NOT HAD A BM THIS SHIFT, UNABLE TO OBTAIN SAMPLE. NGO PATENT, DRAINING CLEAR YELLOW URINE. PT HAS HELPED WITH EACH REPOSITION. CENTRAL LINE DRESSING C/D/I, TKO RUNNING THROUGH LINE. BLOOD SUGARS STABLE THIS SHIFT.
--- NOTE | 2020-02-24 09:59 | NUR ---
ASSUMPTION OF CARE ASSUMED CARE OF PATIENT AT 0700. VITAL SIGNS STABLE, PATIENT EASILY AWAKENS AND DENIES DISCOMFORTS OR NEEDS. ASSESSMENT COMPLETED CHARTED.
[2020-02-24 12:34] LABS: Creatine Kinase MB 9.8 ng/mL (0.0-3.6); Creatine Kinase MB Index 8.8 (0.0-4.0); Troponin I 0.397 ng/mL (0.000-0.040)
--- NOTE | 2020-02-24 13:37 | NUR ---
PAIN PATIENT REPORTED 10/10 PAIN AT 1130 AFTER TAKING PO MEDICATIONS AND WATER. REPORTED TO DR. COLLAZO, NEW ORDERS RECEIVED. PATIENT AT THIS TIME DENIES PAIN, LABS RESULTED, AND EKG COMPLETED. NO ACUTE CHANGES. WILL CONTINUE TO MONITOR.
--- NOTE | 2020-02-24 16:22 | NUR ---
NO ACUTE CHANGES FROM PREVIOUS ASSESSMENT. PATIENT DENIES NEEDS AND DISCOMFORTS.
--- NOTE | 2020-02-24 18:01 | NUR ---
TRANSFER PATIENT TRANSFERED TO PCU VIA WHEELCHAIR, TWO PERSON ASSIST. TOLERATED WELL. REPORT GIVEN TO DEE GALEANA.
--- NOTE | 2020-02-24 18:24 | NUR ---
Initial spiritual care note: Kya appeared quite frail and tired this morning. She was appreciaitve of prayer and encouragement. She was clearly too tired for visit today. [facility] services will remain available.
[2020-02-25 03:47] LABS: BASOPHILS ABSOLUTE AUTO 0.02 K/mm3 (0.00-0.23); BASOPHILS PERCENT AUTO 0 % (0-2); EOSINOPHILS ABSOLUTE AUTO 0.08 K/mm3 (0.00-0.68); EOSINOPHILS PERCENT AUTO 1 % (0-6); Hematocrit 30.9 % (33.0-51.0); Hemoglobin 10.8 g/dL (11.5-16.0); IMMATURE GRAN ABSOLUTE AUTO 0.08 K/mm3 (0.00-0.10); IMMATURE GRAN PERCENT AUTO 1 % (0-1); LYMPHOCYTES ABSOLUTE AUTO 3.36 K/mm3 (0.84-5.20); LYMPHOCYTES PERCENT AUTO 24 % (21-46); MONOCYTES ABSOLUTE AUTO 1.01 K/mm3 (0.16-1.47); MONOCYTES PERCENT AUTO 7 % (4-13); Mean Corpuscular Volume 91 fL (80-100); NEUTROPHILS ABSOLUTE AUTO 9.75 K/mm3 (1.96-9.15); NEUTROPHILS PERCENT AUTO 68 % (41-73); Platelet Count 308 K/mm3 (150-400); RDW Coefficient Variation 12.2 % (11.7-14.2); RDW Standard Deviation 41.1 fL (35.1-46.3); Red Blood Cell Count 3.38 M/mm3 (3.80-5.20)
[2020-02-25 04:04] LABS: Anion Gap 11 mmol/L (6-16); Blood Urea Nitrogen 16 mg/dL (8-24); Bun/Creatinine Ratio 23.3 (12.0-20.0); CO2, Blood 22 mmol/L (21-32); Calcium, Blood 8.2 mg/dL (8.5-10.1); Chloride, Blood 104 mmol/L (98-108); Creatinine, Blood 0.69 mg/dL (0.40-1.00); Glomerular Filtration Rate >60 (60-); Glucose, Blood 230 mg/dL (70-99); Potassium, Blood 2.8 mmol/L (3.5-5.5); Sodium, Blood 137 mmol/L (136-145)
[2020-02-25 04:18] LABS: Magnesium, Blood 0.8 mg/dL (1.6-2.4)
--- NOTE | 2020-02-25 06:56 | NUR ---
SUMMARY PT ALERT AND ORIENTED THOUGHOUT MOST OF SHIFT, FEW MOMENTS WHEN PT WOKE UP FROM SLEEP WITH MILD CONFUSION. SLEPT ON AND OFF THOUGHOUT SHIFT, NO ACUTE DYSPNEA OBSERVED. MILD NAUSEA , RESOLVED WITH MAALOX PRN. WILL CONTINUE TO MONITOR. REPORTED LOW MAGNESIUM AND POTASSIUM TO MD, SEE CHART FOR ORDERS.
--- NOTE | 2020-02-25 08:15 | NUR ---
PT TO SYSTEMS CONSULTANT, MORNING MEDICATIONS WILL BE HELD UNTL SHE RETURNS, POTASSIUM FROM THIS AM REMAINS INFUSING PT WAS NOT ABLE TO TOLERATE RATE OF POTASSIUM DESPITE INFUSING THROUGH CENTRAL LINE PER NOC SHIFT RN, INFUSION RATE WAS LEFT TO AVOID PT DISCOMFORT
[2020-02-25 13:55] LABS: Anion Gap 13 mmol/L (6-16); Blood Urea Nitrogen 13 mg/dL (8-24); Bun/Creatinine Ratio 20.4 (12.0-20.0); CO2, Blood 17 mmol/L (21-32); Chloride, Blood 104 mmol/L (98-108); Creatinine, Blood 0.64 mg/dL (0.40-1.00); Glomerular Filtration Rate >60 (60-); Glucose, Blood 229 mg/dL (70-99); Potassium, Blood 3.9 mmol/L (3.5-5.5); Sodium, Blood 134 mmol/L (136-145)
--- NOTE | 2020-02-25 16:44 | NUR ---
SHIFT NOTE PT HAS BEEN TO [employer], 3 STENTS PLACED TO LAD. PT'S RIJ WAS REPLACED WHEN IN [employer], RETURNED WITH FLUIDS INFUSING WELL THROUGH CENTRAL LINE. PT WITH RT RADIAL ACCESS, WHICH IS NOW FULLY RECOVERED, NO ACTIVE BLEEDING NOTED FROM SITE. PT DID REPORT SOME NAUSEA UPON RETURNING FROM [employer] WHICH RESOLVED WELL WITH ZOFRAN ADMIN. CENTRAL LINE CALVES REPLACED, CAPS HANGED, AND ALL LONES FLUSHED
--- NOTE | 2020-02-26 05:29 | NUR ---
SHIFT SUMMARY PT A&O X3; SLEEPY T/O SHIFT; VSS; DENIES CHEST PAIN; O2 SATS >93 ON RA; R RADIAL SITE C/D/I W/ARM BOARD IN PLACE; CALL LIGHT IN REACH; BED IN LOWEST POSITION; BED ALARM ON FOR SAFETY; WILL CONTINUE TO MONITOR CLOSELY UNTIL HAND OFF TO DAY SHIFT RN.
[2020-02-26 08:54] LABS: BASOPHILS ABSOLUTE AUTO 0.03 K/mm3 (0.00-0.23); BASOPHILS PERCENT AUTO 0 % (0-2); EOSINOPHILS PERCENT AUTO 3 % (0-6); Hematocrit 29.7 % (33.0-51.0); Hemoglobin 10.6 g/dL (11.5-16.0); IMMATURE GRAN ABSOLUTE AUTO 0.13 K/mm3 (0.00-0.10); IMMATURE GRAN PERCENT AUTO 1 % (0-1); LYMPHOCYTES ABSOLUTE AUTO 4.27 K/mm3 (0.84-5.20); LYMPHOCYTES PERCENT AUTO 32 % (21-46); MONOCYTES PERCENT AUTO 11 % (4-13); Mean Corpuscular HGB 32.1 pg (26.0-34.0); Mean Corpuscular HGB Conc 35.7 g/dL (31.5-36.5); Mean Corpuscular Volume 90 fL (80-100); Mean Platelet Volume 11.1 fL (9.1-12.4); NEUTROPHILS ABSOLUTE AUTO 7.13 K/mm3 (1.96-9.15); NEUTROPHILS PERCENT AUTO 53 % (41-73); Platelet Count 342 K/mm3 (150-400); RDW Coefficient Variation 12.3 % (11.7-14.2); RDW Standard Deviation 40.8 fL (35.1-46.3); White Blood Cell Count 13.36 K/mm3 (4.00-11.30)
[2020-02-26 09:08] LABS: Anion Gap 10 mmol/L (6-16); Blood Urea Nitrogen 9 mg/dL (8-24); Bun/Creatinine Ratio 15.3 (12.0-20.0); CO2, Blood 22 mmol/L (21-32); Calcium, Blood 8.4 mg/dL (8.5-10.1); Chloride, Blood 105 mmol/L (98-108); Creatinine, Blood 0.59 mg/dL (0.40-1.00); Glomerular Filtration Rate >60 (60-); Glucose, Blood 192 mg/dL (70-99); Potassium, Blood 3.2 mmol/L (3.5-5.5); Sodium, Blood 137 mmol/L (136-145)
--- NOTE | 2020-02-26 18:05 | NUR ---
REPORT TO ILA GALEANA ON MEDICAL FLOOR. CENTRAL LINE REMAINS IN PLACE, NURSING SUP APPROVED PT TO TRANSFER TO MED FLOOR WITH CENTRAL LINE IN PLACE RIJ. PT BELONGINGS WITH HER TO MED FLOOR. PT ALERT, ANSWERING QUESTIONS UPON TRANSFER OUT OF PCU.
--- NOTE | 2020-02-26 22:42 | NUR ---
1946 PT RESTING COMFORTABLY; RIGHT WRIST OPSITE DRY AND INTACT; ARM BOARD INTACT.
--- NOTE | 2020-02-27 04:16 | NUR ---
SHIFT SUMMARY: 69 Y/O FEMALE RESTED COMFORTABLY ALL SHIFT; DENIES PAIN OR NAUSEA; RIGHT WRIST OPSITE COVERING PUNCTURE WOUND WELL APPROXIMATED WITH ARM BOARD INTACT, ABLE DORSIFLEX ALL FINGERS WITH CAPILLARY REFILL LESS THAN 3 SECONDS; ALERT AND ORIENTED X 2, ABLE TO FOLLOW SIMPLE VERBAL COMMANDS; BED ALARM APPLIED, BED LOW POSITION WITH CALL LIGHT AT SIDE; REFUSED TO WEAR C-PA THIS SHIFT.
--- NOTE | 2020-02-27 19:08 | NUR ---
SHIFT SUMAMRY: NO ACUTE CHANGES TO REPORT THIS SHIFT. PT A&O; CALM AND COOPERATIVE WITH CARE. NO C/O PAIN THIS SHIFT. TELE IN PLACE; SR IN 70s. NGO IN PLACE FOR STRICT I&Os; PATENT AND DRAINING. AWAITING PHYSICAL THERAPY EVAL PRIOR TO D/C. REPORT GIVEN TO ONCOMING RN.
--- NOTE | 2020-02-28 04:09 | NUR ---
COMPUTER SYSTEM SPECIALIST SUMMARY ALERT AND ORIENTED X3. FORGETFUL AT TIMES. APPEARED TO SLEEP T/O NIGHT. DENIES PAIN. BREATHING IS UNLABORED. NO ACUTE CHANGES AT THIS TIME. BED IN LOWEST POSITON WITH CALL LIGHT IN REACH. WILL CONTINUE TO MONITOR AND REPORT TO ONCOMING RN.
[2020-02-28 05:34] LABS: Anion Gap 15 mmol/L (6-16); Blood Urea Nitrogen 16 mg/dL (8-24); CO2, Blood 21 mmol/L (21-32); Calcium, Blood 8.8 mg/dL (8.5-10.1); Chloride, Blood 97 mmol/L (98-108); Creatinine, Blood 0.84 mg/dL (0.40-1.00); Glomerular Filtration Rate >60 (60-); Glucose, Blood 279 mg/dL (70-99); Potassium, Blood 3.2 mmol/L (3.5-5.5); Sodium, Blood 133 mmol/L (136-145)
--- NOTE | 2020-02-28 15:38 | NUR ---
SHIFT SUMMARY PT HAS BEEN A/O X 2-3 TODAY WITH NO C/O PAIN. SHE HAS BEEN ABLE TO WALK WITH THERAPY AND A FWW. THERAPY IS RECOMMENDING SNF DC AND THE PT AND FAMILY ARE IN AGREEMENT. THE PT NEEDS TO REGAIN MORE OF HER STRENGTH BEFORE RETURNING HOME. HER NGO WAS REMOVED ORDERED THIS MORNING AND SHE HAS BEEN ABLE TO VOID ON HER OWN. SHE HAS BEEN CONT/INC. THE CHARGE NURSE REMOVED HER IJ LINE ORDERED. CBGS HAVE BEEN COVERED WITH SLIDING SCALE ORDERED. PT HAS BEEN COOPERATIVE AND IS ABLE TO MAKE HER NEEDS KNOWN WHEN ASKED. HER DAUGHTER HAS BEEN HERE ON AND OFF TODAY. THE PT IS RESTING IN BED WATCHING TV.
--- NOTE | 2020-02-29 06:10 | NUR ---
SUMMARY: PT A/OX2-3 AND IS PLEASANT/COOPERATIVE W/CARE. BED ALARM ON FOR POSSIBLE IMPULSIVITY AND FORGETFULLNESS. SHE'S 1PA W/FWW OOB, PHYS TX IS CONSULTING AND RECOMMENDING SNF UPON D/C. FAMILY AN PT AGREE TO PLAN. PT WAS INCONTINENT THIS SHIFT W/ATTENDS CHANGED PRN. SHE REPOSITIONS SELF IN BED. PT REMAINS NSR AT 70'S BPM PER TELEMETRY W/O ANY ECTOPIES. DX'S ARE C/D/I TO R.NECK AND R.WRIST FROM PREVIOUS IJ AND STENT INSERTION SITES. NO ACUTE CHANGES, VSS/AFEBRILE. SHE SLEPT MAJORITY OF NOCTE AND DENIED PAIN/COMPLAINTS. PT IS A PROBABLE D/C TODAY. WCTM AND REPORT TO DAY RN.
[2020-02-29 08:59] LABS: Anion Gap 14 mmol/L (6-16); Blood Urea Nitrogen 12 mg/dL (8-24); Bun/Creatinine Ratio 15.8 (12.0-20.0); CO2, Blood 22 mmol/L (21-32); Calcium, Blood 9.3 mg/dL (8.5-10.1); Chloride, Blood 101 mmol/L (98-108); Creatinine, Blood 0.76 mg/dL (0.40-1.00); Glomerular Filtration Rate >60 (60-); Glucose, Blood 279 mg/dL (70-99); Potassium, Blood 3.2 mmol/L (3.5-5.5); Sodium, Blood 137 mmol/L (136-145)
[2020-02-29] MEDS ORDERED: ASPI81CH PO (13:40)
[2020-02-29] MEDS ORDERED: ALMACONE SUSPE355 ML PO (13:40)
[2020-02-29] MEDS ORDERED: CLOP75 PO (13:41)
[2020-02-29] MEDS ORDERED: NYSTOP15 GM TOP (13:41)
[2020-02-29] MEDS ORDERED: VISBIOME PROBIOTIC PO (13:42)
[2020-02-29] MEDS ORDERED: ONDA4 PO (13:42)
--- NOTE | 2020-02-29 16:01 | NUR ---
SHIFT SUMMARY PT A/O X 2-3 WITH NO C/O PAIN. THE PT HAS BEEN WORKING WITH THERAPY AND THE PLAN IS FOR HER TO DC TO SNF THIS MARK. HER DAUGHTER HAS BEEN AT THE BEDSIDE MOST OF THE DAY AND CALLS OFTEN FOR HER MOMS CARE NEEDS. PT HAS BEEN A X 1 ASSIST UP TO THE CHAIR AND HAS BEEN CONT/INC. PT IS RESTING IN BED WITH CALL LIGHT IN REACH. TRANSPORT IS SCHEDULED FOR THIS MARK.
--- NOTE | 2020-02-29 22:26 | NUR ---
Reviewed pt's information re call from [facility] re a discharge medication.
== END 2020-02-29 18:25 | DRG 853 ==
LOC: ER 22:13 → ICUW 02-23 00:41 → ICUE 02-23 00:41 → PCU 02-24 17:55 → MEDS 02-26 18:03
PROVIDERS: Emergency Medicine; Hospitalist; Internal Medicine Critical Care Medicine; Internal Medicine Interventional Cardiology; Student in an Organized Health Care Education/Training Program; ADMIT Family Medicine
PROC: 3E033XZ Introduction of Vasopressor into Peripheral Vein, Percutaneous Approach (ICD-10-PCS; principal; 2020-02-23)
PROC: 027036Z Dilation of Coronary Artery, One Artery with Three Drug-eluting Intraluminal Devices, Percutaneous Approach (ICD-10-PCS; 2020-02-25)
PROC: 4A023N6 Measurement of Cardiac Sampling and Pressure, Right Heart, Percutaneous Approach (ICD-10-PCS; 2020-02-25)
PROC: B2111ZZ Fluoroscopy of Multiple Coronary Arteries using Low Osmolar Contrast (ICD-10-PCS; 2020-02-25)
DX: A41.9 Sepsis, unspecified organism (principal); I21.4 Non-ST elevation (NSTEMI) myocardial infarction; J96.01 Acute respiratory failure with hypoxia; G92 Toxic encephalopathy; J69.0 Pneumonitis due to inhalation of food and vomit; I50.21 Acute systolic (congestive) heart failure; R65.21 Severe sepsis with septic shock; J96.02 Acute respiratory failure with hypercapnia; E87.1 Hypo-osmolality and hyponatremia; M62.82 Rhabdomyolysis; N17.9 Acute kidney failure, unspecified; Z20.828 Contact with and (suspected) exposure to other viral communicable diseases; Z79.4 Long term (current) use of insulin; G47.33 Obstructive sleep apnea (adult) (pediatric); E78.5 Hyperlipidemia, unspecified; J44.9 Chronic obstructive pulmonary disease, unspecified; I25.10 Atherosclerotic heart disease of native coronary artery without angina pectoris; Z86.73 Personal history of transient ischemic attack (TIA), and cerebral infarction without residual deficits; E83.42 Hypomagnesemia; K21.9 Gastro-esophageal reflux disease without esophagitis; K44.9 Diaphragmatic hernia without obstruction or gangrene; E11.42 Type 2 diabetes mellitus with diabetic polyneuropathy; E86.0 Dehydration; E11.649 Type 2 diabetes mellitus with hypoglycemia without coma; E11.65 Type 2 diabetes mellitus with hyperglycemia; I11.0 Hypertensive heart disease with heart failure
CPT/HCPCS: 36415; 36600; 51702; 70450; 71045; 72125; 76937; 80047; 80048; 80053; 81001; 82550; 82553; 82803; 82947; 83605; 83735; 83880; 84484; 85014; 85025; 85347; 87040; 87493; 93005; 93010; 93460; 94660; 94762; 96361; 96374; 97110; 97161; 97166; 97530; 97535; 99152; 99153; 99285-25; A9270; A9270-GY; C1725; C1751; C1769; C1874; C1887; C1894; C8929; C9113; C9600; J0696; J1644; J1815; J2250; J2405; J3010; J3475; J3480; J7030; J7040; J7050; J7060; J7120; Q9957; Q9967; U0003

== ENCOUNTER → 2020-05-01 | Outpatient (CLI) | payer MEDICARE ==
[~2020-05-01] MED LIST changes: +ALMACONE SUSPE355 ML PO; +Acetaminophen325 M1 PO; +Aspir 8181 MG PO; +BASAGLAR K100 UNIT/1 SC; +CLOP75 PO; +CODACE30 PO; +Cleocin HCl150 MG PO; +FLUDROCORTISON0.1 M1 PO; +HYDR1TAB94 PO; +LISI5 PO; +MECL25 PO; +METF500 PO; +METO5A PO; +NYSTOP15 GM TOP; +ONDA4 PO; -Prinivil10 MG PO; +VISBIOME PROBIOTIC PO
[2020-05-01 15:17] LABS: BASOPHILS ABSOLUTE AUTO 0.07 K/mm3 (0.00-0.23); BASOPHILS PERCENT AUTO 1 % (0-2); EOSINOPHILS ABSOLUTE AUTO 0.54 K/mm3 (0.00-0.68); EOSINOPHILS PERCENT AUTO 6 % (0-6); Hemoglobin 12.1 g/dL (11.5-16.0); IMMATURE GRAN ABSOLUTE AUTO 0.02 K/mm3 (0.00-0.10); IMMATURE GRAN PERCENT AUTO 0 % (0-1); LYMPHOCYTES ABSOLUTE AUTO 3.67 K/mm3 (0.84-5.20); LYMPHOCYTES PERCENT AUTO 38 % (21-46); MONOCYTES ABSOLUTE AUTO 0.82 K/mm3 (0.16-1.47); MONOCYTES PERCENT AUTO 9 % (4-13); Mean Corpuscular HGB 31.9 pg (26.0-34.0); Mean Corpuscular HGB Conc 32.7 g/dL (31.5-36.5); Mean Corpuscular Volume 98 fL (80-100); Mean Platelet Volume 10.4 fL (9.1-12.4); NEUTROPHILS ABSOLUTE AUTO 4.44 K/mm3 (1.96-9.15); NEUTROPHILS PERCENT AUTO 47 % (41-73); Platelet Count 391 K/mm3 (150-400); RDW Coefficient Variation 12.8 % (11.7-14.2); RDW Standard Deviation 45.7 fL (35.1-46.3); Red Blood Cell Count 3.79 M/mm3 (3.80-5.20); White Blood Cell Count 9.56 K/mm3 (4.00-11.30)
[2020-05-01 15:38] LABS: Very Low Density Lipoprot Chol 31 mg/dL (6-32)
[2020-05-01 15:42] LABS: Alanine Aminotransfer (ALT/SGP 20 U/L (12-78); Albumin, Blood 3.2 g/dL (3.4-5.0); Albumin/Globulin Ratio 0.9 (0.8-1.8); Alk Phos 140 U/L (50-136); Anion Gap 7 mmol/L (6-16); Aspartate Aminotrans (AST/SGOT 24 U/L (12-37); Bilirubin, Total 0.4 mg/dL (0.1-1.0); Blood Urea Nitrogen 12 mg/dL (8-24); Bun/Creatinine Ratio 18.9 (12.0-20.0); CHOL/HDL RATIO 3.7; CO2, Blood 26 mmol/L (21-32); Calcium, Blood 9.9 mg/dL (8.5-10.1); Chloride, Blood 103 mmol/L (98-108); Cholesterol 149 mg/dL (50-200); Creatinine, Blood 0.63 mg/dL (0.40-1.00); Globulin, Blood 3.7 g/dL (2.2-4.0); Glomerular Filtration Rate >60 (60-); Glucose, Blood 92 mg/dL (70-99); HDL Cholesterol 40 mg/dL (>39); LDL/HDL RATIO 1.9; Low Density Lipoprotein Chol 78 mg/dL (0-110); Potassium, Blood 4.2 mmol/L (3.5-5.5); Sodium, Blood 136 mmol/L (136-145); Total Protein, Blood 6.9 g/dL (6.4-8.2); Triglycerides 157 mg/dL (30-160)
[2020-05-01 15:58] LABS: Creatinine, Urine Random 46.6 mg/dL (27.00-270.00)
[2020-05-01 16:00] LABS: Microalb/Creat Ratio UR, Rand 47.21 mg/g (0.000-30.000)
== END | disposition home or self-care (01) ==
LOC: LAB SHORT 09:30 → LAB 09:30
PROVIDERS: Physician Assistant
DX: J96.01 Acute respiratory failure with hypoxia (principal); I25.10 Atherosclerotic heart disease of native coronary artery without angina pectoris; G93.41 Metabolic encephalopathy; G40.89 Other seizures; G47.33 Obstructive sleep apnea (adult) (pediatric); E87.1 Hypo-osmolality and hyponatremia; E11.9 Type 2 diabetes mellitus without complications; E78.5 Hyperlipidemia, unspecified; I10 Essential (primary) hypertension; N17.8 Other acute kidney failure; I63.89 Other cerebral infarction; J44.9 Chronic obstructive pulmonary disease, unspecified; K21.9 Gastro-esophageal reflux disease without esophagitis; R13.12 Dysphagia, oropharyngeal phase; R41.841 Cognitive communication deficit
CPT/HCPCS: 80053; 80061; 82043; 82570; 83036; 85025

== ENCOUNTER 2020-06-10 16:40 | Emergency (ER) | payer MEDICARE ==
[~2020-06-10] VITALS: Ht 157.5 cm; Wt 58.5 kg
[~2020-06-10 16:40] MED LIST changes: -Acetaminophen325 M1 PO; -Aspir 8181 MG PO; -BASAGLAR K100 UNIT/1 SC; -CLOP75 PO; -DULO60 PO; -FLUDROCORTISON0.1 M1 PO; -GABA100 PO; -HYDR1TAB94 PO; -LISI5 PO; -MECL25 PO; -METF500 PO; -METO5A PO; -OMEPRAZOLE20 MG PO; -POTA10T PO
[2020-06-10 17:12] LABS: BASOPHILS ABSOLUTE AUTO 0.09 K/mm3 (0.00-0.23); BASOPHILS PERCENT AUTO 1 % (0-2); EOSINOPHILS PERCENT AUTO 8 % (0-6); Hematocrit 42.4 % (33.0-51.0); Hemoglobin 13.9 g/dL (11.5-16.0); IMMATURE GRAN ABSOLUTE AUTO 0.02 K/mm3 (0.00-0.10); IMMATURE GRAN PERCENT AUTO 0 % (0-1); LYMPHOCYTES ABSOLUTE AUTO 4.61 K/mm3 (0.84-5.20); LYMPHOCYTES PERCENT AUTO 48 % (21-46); MONOCYTES PERCENT AUTO 7 % (4-13); Mean Corpuscular HGB 30.8 pg (26.0-34.0); Mean Corpuscular HGB Conc 32.8 g/dL (31.5-36.5); Mean Corpuscular Volume 94 fL (80-100); Mean Platelet Volume 10.4 fL (9.1-12.4); NEUTROPHILS ABSOLUTE AUTO 3.45 K/mm3 (1.96-9.15); NEUTROPHILS PERCENT AUTO 36 % (41-73); Platelet Count 333 K/mm3 (150-400); RDW Coefficient Variation 12.3 % (11.7-14.2); RDW Standard Deviation 42.7 fL (35.1-46.3); Red Blood Cell Count 4.52 M/mm3 (3.80-5.20); White Blood Cell Count 9.67 K/mm3 (4.00-11.30)
[2020-06-10 17:33] LABS: Alanine Aminotransfer (ALT/SGP 17 U/L (12-78); Albumin, Blood 3.8 g/dL (3.4-5.0); Alk Phos 108 U/L (50-136); Anion Gap 5 mmol/L (6-16); Aspartate Aminotrans (AST/SGOT 12 U/L (12-37); Bilirubin, Total 0.4 mg/dL (0.1-1.0); Blood Urea Nitrogen 16 mg/dL (8-24); Bun/Creatinine Ratio 26.1 (12.0-20.0); CO2, Blood 29 mmol/L (21-32); Calcium, Blood 10.3 mg/dL (8.5-10.1); Chloride, Blood 104 mmol/L (98-108); Creatinine, Blood 0.61 mg/dL (0.40-1.00); Globulin, Blood 3.8 g/dL (2.2-4.0); Glomerular Filtration Rate >60 (60-); Glucose, Blood 231 mg/dL (70-99); Potassium, Blood 4.4 mmol/L (3.5-5.5); Sodium, Blood 138 mmol/L (136-145); Total Protein, Blood 7.6 g/dL (6.4-8.2); Troponin I <0.015 ng/mL (0.000-0.040)
[2020-06-10] MEDS ORDERED: METO5A PO (17:33)
[2020-06-10] MEDS ORDERED: LISI5 PO (17:34)
[2020-06-10] MEDS ORDERED: BASAGLAR K100 UNIT/1 SC (18:02)
[2020-06-10] MEDS ORDERED: DULO60 PO (18:02)
[2020-06-10] MEDS ORDERED: GABA100 PO ×2 (18:03→18:05)
[2020-06-10] MEDS ORDERED: POTA10T PO (18:03)
[2020-06-10] MEDS ORDERED: OMEPRAZOLE20 MG PO (18:03)
[2020-06-10] MEDS ORDERED: ATOR10 PO (18:04)
[2020-06-10] MEDS ORDERED: METF500 PO (18:04)
[2020-06-10] MEDS ORDERED: CLOP75 PO (18:05)
[2020-06-10] MEDS ORDERED: Aspir 8181 MG PO (18:05)
[2020-06-10 22:43] LABS: Source, Urine Clean Catch
[2020-06-10 22:45] LABS: Bilirubin, Urine Neg (Neg); Blood, Urine Neg (Neg); Glucose Qualitative, Urine Neg (Neg); Ketones, Urine 1+ (Neg); Leukocyte Esterase, Urine 1+ (Neg); Nitrite, Urine Neg (Neg); Protein, Urine Neg (Neg); Specific Gravity, Urine 1.005 (1.003-1.022); Urobilinogen, Urine NORM (Normal)
[2020-06-10 22:51] LABS: Appearance, Urine Clear (Clear); Color, Urine Pale Yellow (P-Yellow)
[2020-06-10 22:54] LABS: Bacteria Rare /hpf; Red Blood Cells, Urine Not Seen /hpf (0-2); Squamous Epithelial Cells Rare /hpf (Few)
[2020-06-10] MEDS ORDERED: MECL25 PO (23:30)
[2020-09-12] MEDS ORDERED: GABA100 PO (19:27)
[2020-09-13] MEDS ORDERED: FLUDROCORTISON0.1 M1 PO (17:30)
[2020-09-13] MEDS ORDERED: Acetaminophen325 M1 PO (17:30)
== END 2020-06-10 23:49 | disposition home or self-care (01) ==
LOC: ER 16:40
PROVIDERS: Physician Assistant
DX: I95.1 Orthostatic hypotension (principal); R42 Dizziness and giddiness; I10 Essential (primary) hypertension; E78.5 Hyperlipidemia, unspecified; J44.9 Chronic obstructive pulmonary disease, unspecified; E11.43 Type 2 diabetes mellitus with diabetic autonomic (poly)neuropathy; K31.84 Gastroparesis; Z79.4 Long term (current) use of insulin; Z79.02 Long term (current) use of antithrombotics/antiplatelets; Z79.899 Other long term (current) drug therapy; Z88.8 Allergy status to other drugs, medicaments and biological substances
CPT/HCPCS: 36415; 70450; 70496; 70498; 71046; 80053; 81001; 84484; 85025; 87086; 93005; 93010; 96360-59; 96361-59; 99285-25; A9270; J7030; P9612; Q9967

== ENCOUNTER 2020-08-06 15:52 | Emergency (ER) | payer MEDICARE ==
[~2020-08-06] VITALS: Ht 157.5 cm; Wt 63.5 kg
[~2020-08-06 15:52] MED LIST changes: +Aspir 8181 MG PO; +BASAGLAR K100 UNIT/1 SC; +CLOP75 PO; +DULO60 PO; +GABA100 PO; +LISI5 PO; +MECL25 PO; +METF500 PO; +METO5A PO; +OMEPRAZOLE20 MG PO; +POTA10T PO
[2020-09-12] MEDS ORDERED: GABA100 PO (19:27)
[2020-09-13] MEDS ORDERED: Acetaminophen325 M1 PO (17:30)
[2020-09-13] MEDS ORDERED: FLUDROCORTISON0.1 M1 PO (17:30)
== END 2020-08-06 17:06 | disposition home or self-care (01) ==
LOC: ER 15:52
DX: Z00.00 Encounter for general adult medical examination without abnormal findings (principal); I10 Essential (primary) hypertension; E78.5 Hyperlipidemia, unspecified; J44.9 Chronic obstructive pulmonary disease, unspecified; E11.43 Type 2 diabetes mellitus with diabetic autonomic (poly)neuropathy; K31.84 Gastroparesis; Z88.8 Allergy status to other drugs, medicaments and biological substances; Z79.4 Long term (current) use of insulin; Z86.73 Personal history of transient ischemic attack (TIA), and cerebral infarction without residual deficits; Z79.899 Other long term (current) drug therapy
CPT/HCPCS: 99282

== ENCOUNTER 2020-08-18 16:05 | Emergency (ER) | payer MEDICARE ==
[~2020-08-18] VITALS: Ht 157.5 cm; Wt 57.1 kg
[2020-08-18] MEDS ORDERED: HYDR1TAB94 PO (17:57)
== END 2020-08-18 18:05 | disposition home or self-care (01) ==
LOC: ER 16:05
DX: S52.501A Unspecified fracture of the lower end of right radius, initial encounter for closed fracture (principal); Z79.4 Long term (current) use of insulin; Z79.899 Other long term (current) drug therapy; Z79.02 Long term (current) use of antithrombotics/antiplatelets; Z88.8 Allergy status to other drugs, medicaments and biological substances; W18.30XA Fall on same level, unspecified, initial encounter
CPT/HCPCS: 73090; 99283-25

== ENCOUNTER → 2020-10-11 | Outpatient (CLI) | payer MEDICARE ==
[~2020-10-11] MED LIST changes: +Acetaminophen325 M1 PO; +FLUDROCORTISON0.1 M1 PO; +HYDR1TAB94 PO
== END | disposition home or self-care (01) ==
LOC: LAB SHORT 11:55 → LAB 11:55
DX: R30.0 Dysuria (principal)
CPT/HCPCS: 87077; 87086; 87147; 87186